=== PATIENT | female | born 1945 | race Caucasian/White ===

== ENCOUNTER 2017-02-21 10:37 | Outpatient (CLI) | payer MEDICARE, OTHER | END 2017-02-21 10:38 | disposition home or self-care (01) | LOC: DI 10:37 | PROVIDERS: ATTEND Family Medicine | DX: R01.1 Cardiac murmur, unspecified (principal); I35.0 Nonrheumatic aortic (valve) stenosis | CPT/HCPCS: 93306 ==

== ENCOUNTER 2017-11-11 12:42 | Outpatient (CLI) | payer MEDICARE, OTHER ==
--- NOTE | 2017-11-19 12:44 | Mammography Report ---
DIGITAL SCREENING MAMMOGRAM: 11/11/2017 CLINICAL INDICATION: A 72-year-old with family history of breast cancer, for screening. COMPARISON: Films from [place], [place] dated 10/28/2016, 10/27/2015, 11/08/2014, 10/25/2013, 11/10/2012, 10/30/2011, 10/31/2010, 09/21/2009. TECHNIQUE: Routine CC and MLO projections were obtained of the breasts. FINDINGS: The breasts demonstrate scattered fibroglandular densities bilaterally. Coarse and punctate, typically benign calcifications are present, no suspicious masses, clustered microcalcifications, or regions of architectural distortion are identified. IMPRESSION: BENIGN FINDINGS. RECOMMENDATION: Routine annual screening unless otherwise clinically indicated. BIRADS CATEGORY 2 - benign findings. STANDARD QUALIFYING STATEMENTS: 1. This examination was reviewed with the aid of Computer-Aided Detection (CAD). 2. A negative or benign imaging report should not delay biopsy if clinically suspicious findings are present. Consider surgical consultation if warranted. More than 5% of cancers are not identified by imaging. 3. Dense breasts may obscure an underlying neoplasm. TD: 11/19/2017 12:43
== END 2017-11-11 12:43 | disposition home or self-care (01) ==
LOC: DI 12:42
PROVIDERS: ATTEND Family Medicine
DX: Z12.31 Encounter for screening mammogram for malignant neoplasm of breast (principal); Z80.3 Family history of malignant neoplasm of breast
CPT/HCPCS: 77067

== ENCOUNTER 2017-12-16 10:24 | Outpatient (CLI) | payer MEDICARE, OTHER ==
[2017-12-16 12:55] LABS: BUN - BLOOD UREA NITROGEN 11 mg/dL (6-20); CALCIUM 9.4 mg/dL (8.5-10.3); CARBON DIOXIDE - CO2 27 mmol/L (21-32); CHLORIDE 100 mmol/L (101-111); CHOL/HDL RATIO 2.5 (<4.4); CHOLESTEROL 188 mg/dL; CREATININE 0.7 mg/dL (0.4-1.0); GFR - MDRD 82 (>89); GLUCOSE 92 mg/dL (70-100); HDL CHOLESTEROL 76 mg/dL; LDL CHOLESTEROL,CALCULATED 102 mg/dL; LDL/HDL RATIO 1.3 (<4.4); SODIUM 134 mmol/L (135-145); VLDL CHOLESTEROL 10 mg/dL
[2017-12-16 13:21] LABS: HB2 TOTAL 14.1 g/dL; HEMOGLOBIN A1C 0.48 g/dL; HEMOGLOBIN A1C % 5.3 % (4.6-6.2)
== END 2017-12-16 10:25 | disposition home or self-care (01) ==
LOC: LAB.WCP 10:24
PROVIDERS: ATTEND Family Medicine
DX: R73.01 Impaired fasting glucose (principal); E78.5 Hyperlipidemia, unspecified
CPT/HCPCS: 36415; 80048; 80061; 83036; 83721

== ENCOUNTER 2018-10-07 19:33 | Observation (INO) | payer MEDICARE, OTHER ==
[2018-10-07 20:01] LABS: BASOPHILS % (AUTO) 0.7 %; EOSINOPHILS # (AUTO) 0.1 10^3/uL (0.0-0.7); HGB - HEMOGLOBIN 12.9 g/dL (12.0-16.0); LYMPHOCYTES % (AUTO) 32.9 %; MEAN CORPUSCULAR HEMOGLOBIN 32.4 pg (27.0-31.0); MEAN CORPUSCULAR HGB CONC 34.7 g/dL (32.0-36.0); MEAN CORPUSCULAR VOLUME 93.4 fL (81.0-99.0); MEAN PLATELET VOLUME 6.4 fL (7.9-10.8); MONOCYTES # (AUTO) 0.6 10^3/uL (0.0-1.0); MONOCYTES % (AUTO) 9.9 %; NEUTROPHILS # (AUTO) 3.2 10^3/uL (1.5-6.6); NEUTROPHILS % (AUTO) 54.5 %; PLT - PLATELET COUNT 238 10^3/uL (130-450); RED BLOOD COUNT 3.97 10^6/uL (4.20-5.40); WHITE BLOOD COUNT 5.9 x10^3/uL (4.8-10.8)
[2018-10-07 20:31] LABS: ALBUMIN 4.1 g/dL (3.2-5.5); ALBUMIN/GLOBULIN RATIO 1.5 (1.0-2.2); BILIRUBIN,TOTAL 0.6 mg/dL (0.2-1.0); CALCIUM 9.7 mg/dL (8.5-10.3); CREATININE 0.7 mg/dL (0.4-1.0); TOTAL PROTEIN 6.8 g/dL (6.7-8.2)
--- NOTE | 2018-10-07 20:55 | ED Physician Documentation ---
History of Present Illness - Stated complaint Stated Complaint: HIGH BP - Chief complaint Chief Complaint: Neuro - History obtained from History obtained from: Patient - History of Present Illness Timing: Other (Feeling off x 10 days. Took BP today and it was 220 systolic. Has had on/off burning chest pain. No CP now. But had a notable CP episode at rest today but felt the pain was mild.) Review of Systems Ten Systems: 10 systems reviewed and negative Constitutional: denies: Fever, Chills Cardiac: reports: Chest pain / pressure. 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 - Present Medications Home Medications: Ambulatory Orders Medication Instructions Recorded Confirmed Aspirin [Adult Low Dose Aspirin EC] 1 tab PO DAILY 10/07/18 10/07/18 Lisinopril/Hydrochlorothiazide 1 tab PO DAILY 10/07/18 10/07/18 [Lisinopril-Hctz 20-25 mg Tab] Simvastatin 20 mg PO DAILY 10/07/18 10/07/18 amLODIPine [Norvasc] 5 mg PO DAILY 10/07/18 10/07/18 - Allergies Allergies/Adverse Reactions: Allergies Allergy/AdvReac Type Severity Reaction Status Date / Time No Known Drug Allergies Allergy Verified 10/07/18 19:43 - Social History Does the pt smoke?: No Smoking Status: Never smoker Does the pt drink ETOH?: Yes Does the pt have substance abuse?: No - Family History Family history: reports: Non contributory - Immunizations Immunizations are current?: Yes - POLST Patient has POLST: No PD ED PE NORMAL - Vitals Vital signs reviewed: Yes - General General: Alert and oriented X 3, No acute distress - HEENT HEENT: PERRL, EOMI - Neck Neck: Supple, no meningeal sign, No bony TTP - Cardiac Cardiac: RRR, No murmur - Respiratory Respiratory: No respiratory distress, Clear bilaterally - Abdomen Abdomen: Normal bowel sounds, Soft, Non tender - Back Back: No CVA TTP, No spinal TTP - Derm Derm: Normal color, Warm and dry - Extremities Extremities: No edema, No calf tenderness / cord - Neuro Neuro: Alert and oriented X 3, Normal speech - Psych Psych: Normal mood, Normal affect Results - Vitals Vitals: Vital Signs - 24 hr 10/07/18 10/07/18 10/07/18 19:35 19:41 21:07 Temperature 36.4 C L Heart Rate 72 55 L 55 L Respiratory 18 17 16 Rate Blood Pressure 224/84 H 218/104 H 211/81 H O2 Saturation 99 96 98 Oxygen O2 Source Room air - EKG (time done) 1957 Rate: Rate (enter#) (57) Rhythm: NSR [place]: Normal Intervals: Normal NH QRS: LVH Ischemia: Normal ST segments Computer interpretation: Agree with computer - Labs Labs: Laboratory Tests 10/07/18 10/07/18 10/07/18 19:56 19:56 19:56 WBC 5.9 RBC 3.97 L Hgb 12.9 Hct 37.1 MCV 93.4 MCH 32.4 H MCHC 34.7 RDW 14.0 Plt Count 238 MPV 6.4 L Neut # (Auto) 3.2 Lymph # (Auto) 2.0 [place] # (Auto) 0.6 Eos # (Auto) 0.1 Baso # (Auto) 0.0 Absolute Nucleated RBC 0.00 Nucleated RBC % 0.0 Sodium 139 Potassium 3.9 Chloride 104 Carbon Dioxide 26 Anion Gap 9.0 BUN 15 Creatinine 0.7 Estimated GFR (MDRD) 82 L Glucose 134 H Calcium 9.7 Total Bilirubin 0.6 AST 37 ALT 46 Alkaline Phosphatase 47 Troponin I 0.04 Total Protein 6.8 Albumin 4.1 Globulin 2.7 Albumin/Globulin Ratio 1.5 Lipase 24 PD MEDICAL DECISION MAKING - ED course Complexity details: reviewed old records (Blood pressure in the clinic last year were generally normal in the range of 118-122 systolic.) ED course: This is a 73-year-old woman who presents with uncontrolled blood pressures. In the past her blood pressures been well controlled. She says that she last had it checked about 2 months ago when she gave blood and it was normal then. Today she had an atypical chest pain episode and noted her blood pressure was quite high. It does not really sound like this is improving ACS or unstable angina, that said we must presume that it is and lower her blood pressure and do a formal rule out. Spoke with Dr. Spencer for observation at 9:15 PM. Departure - Departure Disposition: ED Place in Observation Clinical Impression: Chest pain Qualifiers: Chest pain type: unspecified Qualified Code(s): R07.9 - Chest pain, unspecified Hypertension Qualifiers: Hypertension type: essential hypertension Qualified Code(s): I10 - Essential (primary) hypertension Condition: Stable
[2018-10-07] MEDS ORDERED: NITROGLYCERIN 50 MG/250 ML 50 MG/250 ML BOTTLE IV STA (21:03)
[2018-10-07] MEDS ORDERED: LISINOPRIL 5 MG TABLET PO STA (21:04)
[2018-10-07] MEDS ORDERED: NITROGLYCERIN 2% PASTE TOP STA (21:04)
[2018-10-07] MEDS ORDERED: PROCHLORPERAZINE 10 MG/2 ML VIAL IVP PRN (21:42)
[2018-10-07] MEDS ORDERED: ACETAMINOPHEN 325 MG TABLET PO PRN (21:42)
[2018-10-07] MEDS ORDERED: MORPHINE 2 MG/ML CARPUJECT IVP PRN (21:42)
[2018-10-07] MEDS ORDERED: SODIUM CHLORIDE FLUSH 0.9% 10 ML SYRINGE IVP PRN (21:42)
[2018-10-07] MEDS ORDERED: ZOLPIDEM 5 MG TABLET PO PRN (21:42)
[2018-10-07] MEDS ORDERED: ONDANSETRON 4 MG/2 ML VIAL IVP PRN (21:42)
--- NOTE | 2018-10-07 22:24 | HISTORY & PHYSICAL EXAMINATION ---
Chief Complaint - Chief Complaint Chief Complaint: Elevated blood pressure and not feeling well times 10 days History of Present Illness - Admitted From Admitted From:: Emergency department - History Obtained From Records Reviewed: Emergency department records History obtained from: Patient and ED physician, Dr. Ybarra Exam Limitations: None - History of Present Illness HPI Comment/Other: Patient is a 73-year-old female with a past medical history of hypertension, hyperlipidemia, and prediabetes who presents today having felt generally unwell for the last 10 days. Her symptoms are relatively vague but this prompted her to check her blood pressure earlier today and she found her systolic blood pressure to be about 220. Shortly after this she started to feel some discomfort in the midsternal area of her chest that was nonradiating and was not associated with any version and was self-limiting after a few hours. Because of the blood pressure and her feeling off, having a headache and some other vague symptoms such as fatigue, weakness, malaise, she came to the ER for further evaluation and was found to be in hypertensive emergency with blood pressures in the 200s over 90s-100s. Cardiac evaluation included a EKG and initial set of cardiac enzymes which were both negative for ischemic change. The patient was also given a nitroglycerin paste and a 20 mg dose of lisinopril orally. The patient states she has been fully compliant with her blood pressure medications and her last office visit with her PCP was approximately 11 months ago. She has not had any further changes since then but to the best of her knowledge she has not had any problems with her blood pressure prior to this. Besides the headache she denies any focal neurological symptoms such as changes in her vision, numbness, changes in mental status, weakness, etc. History - Past Medical History Cardiovascular: reports: Hypertension, High cholesterol, Murmur (Patient does have a murmur which prompted me to ask about history and she does recall that she has had an echocardiogram which I was able to find and it does demonstrate calcifications on the aortic valve with aortic regurg.) Respiratory: reports: None Neuro: reports: None. denies: CVA, TIA, Headaches GI: reports: GERD ART THERAPY CERTIFIED SUPERVISOR: denies: Breast cancer : reports: Retention Psych: reports: Anxiety MRSA Hx?: No - Past Surgical History /ART THERAPY CERTIFIED SUPERVISOR: reports: Tubal ligation, Other (Bladder suspension surgery sling) HEENT: reports: Tonsil/Adenoidectomy - Family & Social History Family History: Mother: Hypertension, Father: CAD, CVA/TIA, Hypertension, Sister: Cancer (Breast), Hypertension, Brother: Hypertension Social History Notes: Lives with spouse in [place]. Has 2 adult children in [place]. Retired hotel dining room cashier, in 2007. 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 - Substance History Use: Uses substance without health or social issues: NONE Tobacco Details: Cigarettes ( Smoked from [age], > 1 pack, so atleast 20 pack year hx) - POLST Patient has POLST: No POLST Status: DNR Meds/Allgy - Home Medications Home Medications: Ambulatory Orders Medication Instructions Recorded Confirmed Aspirin [Adult Low Dose Aspirin EC] 1 tab PO DAILY 10/07/18 10/07/18 Lisinopril/Hydrochlorothiazide 1 tab PO DAILY 10/07/18 10/07/18 [Lisinopril-Hctz 20-25 mg Tab] Simvastatin 20 mg PO DAILY 10/07/18 10/07/18 amLODIPine [Norvasc] 5 mg PO DAILY 10/07/18 10/07/18 - Allergies Allergies/Adverse Reactions: Allergies Allergy/AdvReac Type Severity Reaction Status Date / Time No Known Drug Allergies Allergy Verified 10/07/18 19:43 Review of Systems - Constitutional Constitutional: reports: Fatigue, Malaise, Weakness, Poor appetite - Neurological Neurological: reports: General weakness, Headache. denies: Focal weakness, Dizziness, Numbness, Memory problems, Pre-existing deficit, Abnormal gait, Seizures, Incoordination, Slurred speech - Psychiatric Psychiatric: reports: Anxiety (She admits to some initial anxiety over the blood pressure and she correlates the onset of her chest pain to her anxiety over reading how high her blood pressure was) Prior Level of Functionality: Fully independent Exam - Vital Signs Reviewed Vital Signs: Yes Vital Signs: Vital Signs x48h Temp Pulse Pulse Resp BP BP Pulse Ox 10/07/18 22:18 36.5 C 62 16 240/83 H 10/07/18 22:01 57 L 17 197/74 H 99 10/07/18 21:33 54 L 16 197/84 H 99 10/07/18 21:25 54 L 15 217/93 H 99 10/07/18 21:07 55 L 16 211/81 H 98 10/07/18 19:41 55 L 17 218/104 H 96 10/07/18 19:35 36.4 C L 72 18 224/84 H 99 Vital Signs - 24 hr 10/07/18 10/07/18 10/07/18 19:35 19:41 21:07 Temperature 36.4 C L Heart Rate 72 55 L 55 L Heart Rate [ Brachial] Respiratory 18 17 16 Rate Blood Pressure 224/84 H 218/104 H 211/81 H Blood Pressure [Right Brachial artery] O2 Saturation 99 96 98 10/07/18 10/07/18 10/07/18 21:25 21:33 22:01 Temperature Heart Rate 54 L 54 L 57 L Heart Rate [ Brachial] Respiratory 15 16 17 Rate Blood Pressure 217/93 H 197/84 H 197/74 H Blood Pressure [Right Brachial artery] O2 Saturation 99 99 99 10/07/18 10/07/18 10/07/18 22:18 22:55 23:01 Temperature 36.5 C Heart Rate Heart Rate [ 62 64 Brachial] Respiratory 16 Rate Blood Pressure 240/82 H Blood Pressure 240/83 H 232/72 H [Right Brachial artery] O2 Saturation 97 10/07/18 10/07/18 23:06 23:11 Temperature Heart Rate Heart Rate [ 69 71 Brachial] Respiratory Rate Blood Pressure Blood Pressure 185/64 H 182/69 H [Right Brachial artery] O2 Saturation Oxygen O2 Source Room air - Physical Exam General Appearance: positive: No acute distress, Alert Eyes Bilateral: positive: Normal inspection, EOMI ENT: positive: ENT inspection nml Neck: positive: Nml inspection, Thyroid nml, No JVD Respiratory: positive: No respiratory distress, Other (There is some moderate discomfort to palpation of the sternum and she does report this is consistent with the chest pain she felt prior to coming in). negative: Chest non-tender Cardiovascular: positive: Regular rate & rhythm, No gallop, Systolic murmur. negative: No murmur, Irregularly irregular, Extrasystoles Peripheral Pulses: positive: 2+ Abdomen: positive: Non-tender Extremities: positive: Non-tender, Full ROM, No pedal edema Neurologic/Psychiatric: positive: Oriented x3, CN's nml (2-12), Motor nml, Sensation nml, Mood/affect nml. negative: Weakness, Sensory loss, Facial droop, Slurred/abnml speech, Depressed mood/affect Conclusion/Plan - Problem List (1) Hypertensive emergency Conclusion/Plan: Blood pressure is not well controlled on her home medication regimen though it apparently has been for some time. There while of the sudden this changed as the patient does not recall any specific etiology such as stressors or changes in degree of aortic calcification and for this I will order a repeat echocardiogram as there could be a change in dynamics enough to affect blood pressure or chest pain. Otherwise, will continue patient's home medication with the addition of an additional 20 mg of lisinopril plus hydralazine as needed and further changes to her medications to be made in the morning based on her blood pressures after the nitroglycerin paste and as needed medications. (2) Hyperlipidemia Conclusion/Plan: We will continue home statin, already gave 80 mg x1 due to chest pain, will check lipid panel in the morning. (3) Prediabetes Conclusion/Plan: Patient is certainly a candidate for metabolic syndrome, and has a outstanding diagnosis of prediabetes and has not been seen by PCP in nearly 1 year. We will check a A1c with morning labs. (4) Chest pain Conclusion/Plan: Given normal cardiac enzyme and EKG and patient's history with pain reproducible by palpation I am not very suspicious of acute coronary syndrome however she does have several risk factors including age, hypertension, obesity, smoking history, prediabetes and is a candidate for a stress test which I have ordered to be done if her blood pressure can be controlled. Also echocardiogram is ordered. Qualifiers: Chest pain type: unspecified Qualified Code(s): R07.9 - Chest pain, unspecified - Lab Results Lab results reviewed: Yes Fish Bones: 10/07/18 19:56 10/07/18 19:56 - EKG Results EKG Interpreted Independently: Yes EKG Comparison: Old EKG unavailable Core Measures - Anticipated LOS I expect patient to be DC'd or transferred within 96 hours.: Yes - DVT/VTE - Prophylaxis VTE/DVT Device ordered at admit?: Yes
[2018-10-07] MEDS ORDERED: hydrALAZINE INJ 20 MG/ML VIAL IVP PRN (22:34)
--- NOTE | 2018-10-07 23:26 | ADVANCE CARE PLANNING NOTE ---
Advance Care Planning - Date/Time Date: 10/07/18 Time: 23:24 - Purpose of encounter Text: To discuss options for expressing patient wishes and goals for end-of-life care - Parties in attendance Parties in attendance: Patient and and myself - Decisional capacity Decisional capacity of: Full decisional capacity with no mental status changes and baseline mental stat us normal - Subjective/Patient's story Subjective/Patient's story: Patient came in because she was not feeling well for 10 days and discovered her blood pressure to be over 200 systolic. She started to have some chest pain shortly after this. - Objective/Medical story Objective/Medical Story: Initial evaluation in the emergency room was reassuring and that troponin was negative x1 and EKG showed no ischemic changes but given her hypertensive emergency with chest pain was considered for possible [place] ischemia versus other etiologies of chest pain.Was put on a nitro glycerin paste, and given lisinopril orally. - Goals of Care Goals of care determinations: Rule out acute coronary syndrome and control blood pressure - Plan Plan: Placed in observation overnight with serial troponins, echocardiogram and stress test in the morning, close monitoring of blood pressure with as needed hydralazine ordered in addition to previous medications. - Code Status Code Status: Do Not Attempt Resuscitation - Time Spent on Advance Care Planning Time spent on advance care plannin minutes
[2018-10-08] MEDS: SODIUM CHLORIDE FLUSH 0.9% 10 ML SYRINGE IVP SCH ×2 (00:23→08:59)
[2018-10-08 03:29] LABS: BASOPHILS % (AUTO) 0.6 %; EOSINOPHILS # (AUTO) 0.1 10^3/uL (0.0-0.7); EOSINOPHILS % (AUTO) 2.1 %; HGB - HEMOGLOBIN 12.2 g/dL (12.0-16.0); LYMPHOCYTES # (AUTO) 1.7 10^3/uL (1.5-3.5); LYMPHOCYTES % (AUTO) 24.9 %; MEAN CORPUSCULAR HEMOGLOBIN 32.5 pg (27.0-31.0); MEAN CORPUSCULAR HGB CONC 35.3 g/dL (32.0-36.0); MEAN CORPUSCULAR VOLUME 92.2 fL (81.0-99.0); MONOCYTES # (AUTO) 0.6 10^3/uL (0.0-1.0); MONOCYTES % (AUTO) 8.9 %; NEUTROPHILS # (AUTO) 4.3 10^3/uL (1.5-6.6); NEUTROPHILS % (AUTO) 63.5 %; PLT - PLATELET COUNT 234 10^3/uL (130-450); RED BLOOD COUNT 3.75 10^6/uL (4.20-5.40); RED CELL DISTRIBUTION WIDTH 14.1 % (12.0-15.0); WHITE BLOOD COUNT 6.8 x10^3/uL (4.8-10.8)
[2018-10-08 03:31] LABS: ALBUMIN 3.6 g/dL (3.2-5.5); ALBUMIN/GLOBULIN RATIO 1.5 (1.0-2.2); ALKALINE PHOSPHATASE 44 IU/L (42-121); ALT ALANINE AMINOTRANSFERASE 39 IU/L (10-60); AST ASPARTATE AMINOTRANSFERASE 31 IU/L (10-42); BILIRUBIN,TOTAL 0.6 mg/dL (0.2-1.0); BUN - BLOOD UREA NITROGEN 14 mg/dL (6-20); CALCIUM 9.2 mg/dL (8.5-10.3); CARBON DIOXIDE - CO2 26 mmol/L (21-32); CHLORIDE 106 mmol/L (101-111); CHOL/HDL RATIO 2.6 (<4.4); CHOLESTEROL 159 mg/dL; CREATININE 0.7 mg/dL (0.4-1.0); GFR - MDRD 82 (>89); GLUCOSE 138 mg/dL (70-100); HDL CHOLESTEROL 62 mg/dL; LDL CHOLESTEROL,CALCULATED 85 mg/dL; LDL/HDL RATIO 1.4 (<4.4); SODIUM 140 mmol/L (135-145); VLDL CHOLESTEROL 12 mg/dL
[2018-10-08] MEDS ORDERED: PANTOPRAZOLE 40 MG TABLET PO SCH (07:00)
[2018-10-08] MEDS ORDERED: ASPIRIN EC 81 MG TABLET PO SCH (09:00)
[2018-10-08] MEDS ORDERED: POLYETHYLENE GLYCOL 3350 17 GM PACKET PO SCH (09:00)
[2018-10-08] MEDS ORDERED: hydroCHLOROthiazide 25 MG TABLET PO SCH (09:00)
[2018-10-08] MEDS ORDERED: amLODIPine 5 MG TABLET PO SCH ×2 (09:00)
[2018-10-08] MEDS ORDERED: NON FORMULARY MED (Lisinopril/Hydrochlorothiazide [Lisinopril-Hctz 20-25 Mg Tab] 1 TAB) PO SCH (09:00)
[2018-10-08] MEDS ORDERED: ENOXAPARIN 40 MG/0.4 ML SYRINGE SUBQ SCH (09:00)
[2018-10-08] MEDS ORDERED: LISINOPRIL 20 MG TABLET PO SCH (09:00)
[2018-10-08] MEDS ORDERED: NON FORMULARY MED (Simvastatin [Simvastatin] 20 MG) PO SCH (09:00)
--- NOTE | 2018-10-08 10:14 | Discharge Plan ---
Discharge Plan Disposition: 01 Home, Self Care Condition: Stable Prescriptions: Amlodipine Besylate [Norvasc] 10 mg PO DAILY #30 tablet Diet: Regular Activity Restrictions: Activity as Tolerated Shower Restrictions: No Driving Restrictions: No Additional Instructions or Follow Up instructions: You were placed under observation in the hospital because you came to the e mergency room with an elevated blood pressure that alarmed you. You were also having some vague chest pain. We were able to bring your blood pressure under control with a medicine called hydralazine. Your blood pressure is now much better. But I have increased your Norvasc from 5 mg to 10 mg a day and I sent a new prescription in to [facility] for the 10 mg. Please pickle processor the new prescription after you have finished taking your Norvasc 5 mg, 2 tablets a day. Your lisinopril with hydrochlorothiazide will stay the same strength. As for the chest pain, blood test for heart attack were negative. But your heart muscle was under little bit of strain because of the high blood pressure in the highest your muscle enzyme level went to was 0.07. It is not considered positive unless you go greater than 0.49. You also had a treadmill test with a scan of your heart. The results of that are pending at the time of this discharge. Review that report with Dr. Cifuentes. In addition to the blood test, treadmill test, you also had an echocardiogram done of your heart. Which is an ultrasound of your heart. Preliminary report shows your ability to squeeze in a normal way is quite good. We call that ejection fraction and that is 60-65%. Your high blood pressure is impairing your ability for your heart to completely relax and you have something called grade 1 diastolic heart failure. You do have a little bit of narrowing of the aortic valve with mild to moderate aortic stenosis. It has not changed from the February 2017 echocardiogram. Again, this is a preliminary report, make sure that your primary care provider reviews this with you. Please make an appointment to see Dr. Cifuentes in the next week. You need your blood pressure checked on the new strength of Norvasc, and Dr. Cifuentes needs to review the treadmill test. No Smoking: If you smoke, Please STOP! Call for help. Follow-up with: Shaji Cifuentes, [Primary Care Provider] -
--- NOTE | 2018-10-08 13:56 | Nuclear Medicine Report ---
Reason: chest pain Procedure Date: 10/08/2018 Accession Number: [id number] / [id number] Procedure: NM - Myocardial Perfusion STR/RST CPT Code: FULL RESULT: EXAM: SINGLE-ISOTOPE EXERCISE STRESS TEST. SINGLE-ISOTOPE AND ONE-DAY REST/STRESS MYOCARDIAL PERFUSION SCANS WITH TOMOGRAPHIC IMAGING, QUANTITATIVE ANALYSIS, WALL MOTION ANALYSIS AND CALCULATION OF EJECTION FRACTION. EXAM DATE: 10/08/2018 01:34 PM. CLINICAL HISTORY: Chest pain. COMPARISON: None. TECHNIQUE: A rest myocardial perfusion scan was done with tomography after the intravenous administration of 10.9 mCi Tc-99m sestamibi. After an appropriate delay, a treadmill exercise stress was performed according to department protocol. The patient exercised for 6 minutes and 39 seconds. The maximum heart rate was 150 bpm, which was 103% of the maximum predicted heart rate of 145 bpm. At approximately peak heart rate, 43.1 mCi of Tc-99m sestamibi was injected for stress myocardial perfusion scan. Motion correction was applied when appropriate. Gated tomographic images were obtained for wall motion analysis and computation of left ventricular ejection fraction. FINDINGS: On visual analysis, no convincing significant fixed or reversible perfusion defects. Computer analysis: Summed stress score 3 Summed rest score 2 Summed difference score 1 Wall motion analysis demonstrates no focal wall motion abnormality The left ventricular end-diastolic volume is 69 cc. The left ventricular end-systolic volume is 16 cc. The left ventricular ejection fraction is calculated to be 77%. IMPRESSION: 1. No scintigraphic findings to indicate myocardial ischemia. Negative for infarct. 2. Normal left ventricular ejection fraction of 77%. 3. Normal segmental and global wall motion. 4. Normal left ventricular cavity size, no change with stress. 5. On computer analysis, normal study with no ischemia. [facility]
[2018-10-08 13:57] VITALS: BP 126/53
--- NOTE | 2018-10-08 19:17 | DISCHARGE SUMMARY ---
Physician: Cielo Thomas MD DATE OF ADMISSION: 10/07/2018 DATE OF DISCHARGE: 10/08/2018 DISCHARGE DIAGNOSES 1. Chest pain. 2. Hypertensive urgency. 3. Aortic regurgitation, mild aortic stenosis. 4. Glucose intolerance. 5. Hyperlipidemia. DISCHARGE MEDICATIONS 1. Aspirin 81 mg a day. 2. Lisinopril 24/25 mg tablet once a day. 3. Simvastatin 20 mg a day. 4. NEW PRESCRIPTION: Amlodipine increased from 5 mg daily to 10 mg daily. PRINCIPAL PROCEDURES 1. Ilir protocol treadmill study with nuclear imaging myocardial perfusion scan. Patient reached target heart rate at 150 beats per minute, which was 103% of the maximum predicted heart rate of 145. There were no ST changes on EKG that were diagnostic of ischemia. Gated tomographic images were obtained, and on visual analysis, no convincing significant fixed or reversible perfusion defects. 2. Echocardiogram compared to 02/2017 echo, preliminary report; final report must be verified by PCP to discuss with patient. Overall left ventricular systolic function normal with an ejection fraction of 60-65%. Grade 1 diastolic dysfunction. Mild concentric left ventricular hypertrophy. Aortic valve trileaflet. Mild aortic stenosis with peak mean pressure gradient of 21 mmHg/16 mmHg. Valve area 1.33 cm2. Trace aortic regurgitation. No change from 02/21/2017. 3. Fasting lipid panel with cholesterol 159, LDL 85, VLDL 12, HDL 62. 4. Fasting glucose 138. 5. Serial cardiac enzymes negative. HOSPITAL COURSE: She is a luz elena 73-year-old female who has not been feeling well for a couple of weeks. She is exhausted, but nothing very specific. There is no fever, no chills, no orthopnea, no edema. No palpitations, but not feeling well for 10 days caused her to check her blood pressure today, and she found her systolic blood pressure above 200. Shortly after that, she started feeling as if she was having midsternal area in her chest that was aching. Nonradiating. Not worse with exertion, but not better with rest. It also came with headache, fatigue, weakness, malaise, and she came to the emergency room where a hypertensive emergency with a blood pressure over 200s/90-100s was found. EKG and cardiac enzymes were negative for ischemic changes. She was given nitroglycerin paste, 20 mg dose of lisinopril. She stated that she has been fully compliant with her blood pressure drugs, and her last PCP office visit was 11 months ago. She has known mild aortic regurgitation and mild aortic stenosis. Hospital course was that of an elderly slightly anxious female who needed to be treated for hypertensive urgency. Not only did she receive those medications in the emergency room, but she received Amlodipine 10 mg and hydralazine IV. Only 1 dose of hydralazine was required. This brought her blood pressure down from 232/72 to 126/53 by the time of discharge. To workup her chest pain, she underwent a stress test, Ilir protocol, with nuclear medicine imaging and was negative for ischemia. There were no fixed or reversible diffusion defects. Echo confirmed mild aortic regurgitation that was unchanged from 02/2017. Aortic root diameter represents the main risk factor for aortic valve regurgitation. Even though arterial hypertension is commonly regarded as a predisposing factor for the development of thoracic aortic root aneurysms, the role of blood pressure as a determinate for aortic root enlargement is still controversial. There is a strong association with a widened pulse pressure, which this patient has, hypertension, and aortic root enlargement However, her aortic root is normal size on echo. The next differential as the possible cause of her blood pressure should be evaluated. I am recommending that she get renal artery Dopplers in the outpatient setting. I would recommend she be seen in a radiology facility that specializes in arterial Dopplers of the renal arteries. Glucose intolerance was noted on labs with a fasting of 138. A1c was not done. Fasting lipid panel was noted as above. The patient had no further chest pain during her stay. PHYSICAL EXAMINATION VITAL SIGNS: On discharge, temperature was 36.6, pulse 67, blood pressure 126/53, respirations 16, and 96% on room air. GENERAL: She is a delightful, alert, elderly female who looks her stated age. NECK: Supple without carotid bruits. LUNGS: Clear to auscultation and she has no crackles, rhonchi or wheezing. HEART: PMI is normally placed with a regular rate and rhythm and a systolic ejection murmur that does radiate into her carotids. ABDOMEN: Soft, nontender. No organomegaly. EXTREMITIES: The ankles are without edema, warm. She ambulates without any ataxia or increased respiratory effort. She is asked to follow up with seeing her primary care provider, Rossana Cifuentes, in the next 1-2 weeks. We have increased her Norvasc from 5 to 10 mg. We would like to have her blood pressure reviewed, and she should get those renal artery Dopplers done to see if there is a reason why this woman is giving uncontrolled blood pressure in a compliant patient. She should also have her glucose monitored with an A1c done in 4-6 months to make sure she is not developing sofiya diabetes. TD: 10/08/2018 15:37 MTDMacrina
[2018-10-08 20:14] LABS: HEMOGLOBIN A1C 0.47 g/dL; HEMOGLOBIN A1C % 5.5 % (4.6-6.2)
[2018-10-08] MEDS ORDERED: ATORVASTATIN 40 MG TABLET PO SCH (21:00)
--- NOTE | 2018-10-12 16:40 | PROCEDURE REPORT ---
Hospitalist Procedure Note - Procedure Note Procedure Note: October 08, 2018 Procedure: Nuclear medicine myocardial perfusion stress/rest Indication: Midsternal chest pain in a patient with hypertensive urgency Clinical history: 73-year-old female with no known history of coronary artery disease who has risk factors of hypertension, hyperlipidemia, glucose intolerance, and a positive family history that presents with vague substernal chest pain in association with a blood pressure of over 224/104. EKG has been noncontributory and troponins are negative. She is an ex-smoker that smoked 1 pack/day for 20 years and quit at age 38. Procedure: The patient performed a Ilir protocol treadmill exercise and comp leted 6 minutes and 39 seconds with an estimated workload of 7.05 metabolic equivalents. The test was terminated due to fatigue and shortness of breath. There was no chest pain. The heartbeat was 66 beats per minute at rest. She reached 150 heartbeats per minute which was 103% max predicted heart rate. Starting blood pressure was 128/82 and maximum blood pressure was 172/80. This was a normal hypertensive response. Other than fatigue and shortness of breath she did not have any chest pain. The resting EKG demonstrated normal sinus rhythm, no ectopy. She had T wave inversions at III, with flattening of T waves diffusely in all leads. She had an RSR prime in V1. During stress there was isolated PVCs. Maximum ST elevation was 0.16 in V2. There was no diagnostic criteria for ischemia met. Recovery was quick. She was down to 100 heartbeats per minute at 2 minutes and 14 seconds. Was below 100 x 2 minutes and 40 seconds. By 3 minutes 38 seconds heart rate was 87 and blood pressure was 178/68. Impression: No diagnostic criteria for ischemia met in this Ilir protocol treadmill test where the patient had good effort. Nuclear medicine imaging report to follow under separate dictation per radiology
== END 2018-10-08 15:00 | disposition home or self-care (01) ==
LOC: ED 19:33 → MS2 21:45
PROVIDERS: ADMIT Family Medicine Sports Medicine; ATTEND Specialist
DX: R07.89 Other chest pain (principal); I16.0 Hypertensive urgency; I35.0 Nonrheumatic aortic (valve) stenosis; E74.39 Other disorders of intestinal carbohydrate absorption; E78.5 Hyperlipidemia, unspecified; I10 Essential (primary) hypertension; R73.03 Prediabetes; E66.9 Obesity, unspecified; Z68.31 Body mass index [BMI] 31.0-31.9, adult; Z87.891 Personal history of nicotine dependence; Z82.49 Family history of ischemic heart disease and other diseases of the circulatory system; F41.9 Anxiety disorder, unspecified
CPT/HCPCS: 36415; 78452; 80053; 80061; 83036; 83690; 83880; 84484; 85025; 93005; 93017; 93306; 96374; 99283; 99284; A9270; A9500; G0378; 80048; 83721

== ENCOUNTER 2018-12-31 08:00 | Outpatient (CLI) | payer MEDICARE, OTHER ==
[2018-12-31 18:46] LABS: BASOPHILS # (AUTO) 0.1 10^3/uL (0.0-0.1); BASOPHILS % (AUTO) 1.4 %; EOSINOPHILS # (AUTO) 0.2 10^3/uL (0.0-0.7); EOSINOPHILS % (AUTO) 3.5 %; HGB - HEMOGLOBIN 13.1 g/dL (12.0-16.0); LYMPHOCYTES # (AUTO) 1.9 10^3/uL (1.5-3.5); LYMPHOCYTES % (AUTO) 32.7 %; MEAN CORPUSCULAR HEMOGLOBIN 31.3 pg (27.0-31.0); MEAN CORPUSCULAR HGB CONC 33.1 g/dL (32.0-36.0); MEAN CORPUSCULAR VOLUME 94.5 fL (81.0-99.0); MEAN PLATELET VOLUME 7.3 fL (7.9-10.8); MONOCYTES # (AUTO) 0.6 10^3/uL (0.0-1.0); MONOCYTES % (AUTO) 11.1 %; NEUTROPHILS % (AUTO) 51.3 %; PLT - PLATELET COUNT 273 10^3/uL (130-450); RED BLOOD COUNT 4.19 10^6/uL (4.20-5.40); RED CELL DISTRIBUTION WIDTH 14.4 % (12.0-15.0); WHITE BLOOD COUNT 5.8 x10^3/uL (4.8-10.8)
[2018-12-31 19:03] LABS: ALBUMIN 4.3 g/dL (3.2-5.5); ALBUMIN/GLOBULIN RATIO 1.5 (1.0-2.2); ALKALINE PHOSPHATASE 57 IU/L (42-121); ALT ALANINE AMINOTRANSFERASE 40 IU/L (10-60); AST ASPARTATE AMINOTRANSFERASE 31 IU/L (10-42); BILIRUBIN,TOTAL 0.6 mg/dL (0.2-1.0); BUN - BLOOD UREA NITROGEN 21 mg/dL (6-20); CALCIUM 10.3 mg/dL (8.5-10.3); CARBON DIOXIDE - CO2 24 mmol/L (21-32); CHLORIDE 104 mmol/L (101-111); CHOL/HDL RATIO 2.9 (<4.4); CHOLESTEROL 172 mg/dL; CREATININE 0.7 mg/dL (0.4-1.0); GFR - MDRD 82 (>89); GLUCOSE 117 mg/dL (70-100); HB2 TOTAL 14.2 g/dL; HDL CHOLESTEROL 59 mg/dL; HEMOGLOBIN A1C 0.58 g/dL; HEMOGLOBIN A1C % 5.9 % (4.6-6.2); LDL CHOLESTEROL,CALCULATED 100 mg/dL; LDL/HDL RATIO 1.7 (<4.4); SODIUM 138 mmol/L (135-145); TOTAL PROTEIN 7.1 g/dL (6.7-8.2); VLDL CHOLESTEROL 13 mg/dL
== END 2018-12-31 23:59 | disposition home or self-care (01) ==
LOC: LAB.WCP 08:00
PROVIDERS: ATTEND Family Medicine
DX: R73.01 Impaired fasting glucose (principal); E78.5 Hyperlipidemia, unspecified; I10 Essential (primary) hypertension
CPT/HCPCS: 36415; 80053; 80061; 83036; 83721; 85025

== ENCOUNTER 2019-01-07 15:30 | Outpatient (CLI) | payer MEDICARE, OTHER ==
[2019-01-07 19:26] LABS: BILIRUBIN,URINE NEGATIVE (NEGATIVE); GLUCOSE, URINE (UA) NEGATIVE (NEGATIVE); KETONES,URINE (UA) NEGATIVE (NEGATIVE); LEUKOCYTE ESTERASE, URINE SMALL (NEGATIVE); NITRITE,URINE POSITIVE (NEGATIVE); OCCULT BLOOD,URINE TRACE-LYSE (NEGATIVE); PROTEIN,URINE NEGATIVE (NEGATIVE); UROBILINOGEN,URINE 0.2 (NORMAL) E.U./dL (NORMAL)
[2019-01-07 19:27] LABS: CLARITY,URINE CLEAR (CLEAR)
[2019-01-07 19:42] LABS: BACTERIA,URINE Rare /HPF (None Seen); RBC,URINE 0-5 /HPF (0-5); SQUAMOUS EPITHELIAL CELL,UR NONE SEEN (<= Few)
== END 2019-01-07 23:59 | disposition home or self-care (01) ==
LOC: LAB.R 15:30
PROVIDERS: ATTEND Family Medicine
DX: R30.0 Dysuria (principal)
CPT/HCPCS: 81001; 81003; 87086

== ENCOUNTER 2019-01-11 10:08 | Outpatient (CLI) | payer MEDICARE, OTHER ==
--- NOTE | 2019-01-11 14:25 | Mammography Report ---
Reason: SCREENING MAMMO Procedure Date: 01/11/2019 Accession Number: [id number] / [id number] Procedure: [facility] - Screening Mammo w/Valdemar CPT Code: FULL RESULT: EXAM: Screening Mammo w/Valdemar DATE: 01/11/2019 12:14 PM CLINICAL HISTORY: Family history of breast cancer, for routine screening TECHNIQUE: (B) - Bilateral CC and MLO views were obtained. COMPARISON: 11/11/2017, 10/28/2016, 10/27/2015, 11/08/2014. PARENCHYMAL PATTERN: (A) - The breasts demonstrate scattered fibroglandular densities bilaterally. FINDINGS: There has been no significant interval change. There are no suspicious masses, calcifications, or areas of distortion. Small nodular densities predominantly in the left breast are stable. Benign-appearing coarse calcifications are present in the right breast with bilateral vascular calcifications. IMPRESSION: Benign findings. BI-RADS category 2. RECOMMENDATION: (ANNUAL) - Recommend routine annual screening mammography. BI-RADS CATEGORY: (2) - Benign Findings. STANDARD QUALIFYING STATEMENTS: 1. This examination was not reviewed with the aid of Computer-Aided Detection (CAD). 2. A negative or benign imaging report should not preclude biopsy if clinically suspicious findings are present. 3. Dense breasts may obscure an underlying neoplasm. 4. This examination was reviewed with the aid of 3D breast imaging (tomosynthesis).
== END 2019-01-11 10:09 | disposition home or self-care (01) ==
LOC: DI 10:08
DX: Z12.31 Encounter for screening mammogram for malignant neoplasm of breast (principal); Z80.3 Family history of malignant neoplasm of breast
CPT/HCPCS: 77063; 77067

== ENCOUNTER 2019-02-09 11:30 | Outpatient (CLI) | payer MEDICARE, OTHER | END 2019-02-09 11:31 | disposition home or self-care (01) | LOC: LAB.R 11:30 | PROVIDERS: ATTEND Family Medicine | DX: R30.0 Dysuria (principal) | CPT/HCPCS: 87086 ==

== ENCOUNTER 2019-02-26 08:00 | Outpatient (CLI) | payer MEDICARE, OTHER ==
[2019-02-26 18:29] LABS: BILIRUBIN,URINE NEGATIVE (NEGATIVE); GLUCOSE, URINE (UA) NEGATIVE (NEGATIVE); KETONES,URINE (UA) NEGATIVE (NEGATIVE); LEUKOCYTE ESTERASE, URINE SMALL (NEGATIVE); NITRITE,URINE NEGATIVE (NEGATIVE); OCCULT BLOOD,URINE SMALL (NEGATIVE); PROTEIN,URINE NEGATIVE (NEGATIVE); UROBILINOGEN,URINE 0.2 (NORMAL) E.U./dL (NORMAL)
[2019-02-26 18:52] LABS: CLARITY,URINE CLEAR (CLEAR)
[2019-02-26 18:53] LABS: BACTERIA,URINE None Seen /HPF (None Seen); RBC,URINE 0-5 /HPF (0-5); SQUAMOUS EPITHELIAL CELL,UR NONE SEEN (<= Few)
== END 2019-02-26 23:59 | disposition home or self-care (01) ==
LOC: LAB.R 08:00
PROVIDERS: ATTEND Physician Assistant
DX: R30.0 Dysuria (principal)
CPT/HCPCS: 81001; 81002; 81003; 87086

== ENCOUNTER 2019-04-22 13:16 | Outpatient (CLI) | payer MEDICARE, OTHER ==
[2019-04-22 18:59] LABS: CREATININE 0.7 mg/dL (0.4-1.0)
== END 2019-04-22 23:59 | disposition home or self-care (01) ==
LOC: LAB.WCP 13:16
PROVIDERS: ATTEND Urology
DX: Z87.448 Personal history of other diseases of urinary system (principal)
CPT/HCPCS: 36415; 82565; 84520

== ENCOUNTER 2019-06-07 06:40 | Day surgery (SDC) | payer MEDICARE, OTHER ==
[2019-06-07] MEDS ORDERED: MIDAZOLAM 2 MG/2 ML VIAL IVP ONE (06:41)
[2019-06-07] MEDS ORDERED: fentaNYL 250 MCG/5 ML VIAL IVP ONE (06:41)
[2019-06-07] MEDS ORDERED: LACTATED RINGERS 1,000 ML IV ONE (06:47)
[2019-06-07 09:33] VITALS: BP 127/72
== END 2019-06-07 06:41 | disposition home or self-care (01) ==
LOC: SDS 06:40
PROVIDERS: ATTEND Internal Medicine Gastroenterology
PROC: 0DJD8ZZ Inspection of Lower Intestinal Tract, Via Natural or Artificial Opening Endoscopic (ICD-10-PCS; principal; 2019-06-07 08:15)
DX: Z12.11 Encounter for screening for malignant neoplasm of colon (principal); K57.30 Diverticulosis of large intestine without perforation or abscess without bleeding; E66.9 Obesity, unspecified; I10 Essential (primary) hypertension; Z79.899 Other long term (current) drug therapy; Z80.3 Family history of malignant neoplasm of breast; Z87.891 Personal history of nicotine dependence; Z68.31 Body mass index [BMI] 31.0-31.9, adult
CPT/HCPCS: G0105; J3010; J7120

== ENCOUNTER 2020-04-06 12:42 | Outpatient (CLI) | payer MEDICARE, OTHER ==
--- NOTE | 2020-04-10 07:58 | Mammography Report ---
Reason: ROUTINE MAMMO Procedure Date: 04/06/2020 Accession Number: [id number] / [id number] Procedure: MGN - Screening Mammo w/Valdemar CPT Code: Final Report FULL RESULT: BILATERAL DIGITAL SCREENING MAMMOGRAM 3D/2D: 04/06/2020 CLINICAL: Routine screening. Comparison is made to exams dated: 01/11/2019 mammogram, 11/11/2017 mammogram - [facility], 10/28/2016 mammogram, 10/27/2015 mammogram, and 11/08/2014 mammogram - [facility]. There are scattered fibroglandular elements in both breasts. There are benign vascular calcifications in both breasts. No significant masses, calcifications, or other findings are seen in either breast. There has been no significant interval change. IMPRESSION: There is no mammographic evidence of malignancy. A 1 year screening mammogram is recommended. This exam was interpreted at Station ID: [id number]. NOTE: For mammograms, a report in lay terms will be sent to the patient. Approximately 15% of breast malignancies will not be visualized mammographically. In the management of a palpable breast mass, a negative mammogram must not discourage biopsy of a clinically suspicious lesion. Electronically Signed By: Agnieszka scales/tahir:04/07/2020 16:14:14 ACR BI-RADS Category 2: Benign Finding(s) 3342F B -Scattered fibroglandular 2 Mammogram [id number] 1 year screening B
== END 2020-04-06 12:43 | disposition home or self-care (01) ==
LOC: DI.N 12:42
DX: Z12.31 Encounter for screening mammogram for malignant neoplasm of breast (principal)
CPT/HCPCS: 77063; 77067

== ENCOUNTER 2020-06-23 15:47 | Outpatient (CLI) | payer MEDICARE, OTHER ==
[2020-06-23] MEDS ORDERED: IOVERSOL 320 50 ML VIAL ONE (16:04)
[2020-06-23] MEDS ORDERED: IOVERSOL 320 100 ML VIAL IVP ONE ×2 (16:04→17:16)
[2020-06-23 16:21] LABS: BASOPHILS # (AUTO) 0.1 10^3/uL (0.0-0.1); BASOPHILS % (AUTO) 0.7 %; EOSINOPHILS # (AUTO) 0.1 10^3/uL (0.0-0.7); EOSINOPHILS % (AUTO) 0.9 %; HGB - HEMOGLOBIN 12.2 g/dL (12.0-16.0); LYMPHOCYTES # (AUTO) 3.3 10^3/uL (1.5-3.5); LYMPHOCYTES % (AUTO) 33.8 %; MEAN CORPUSCULAR HEMOGLOBIN 32.5 pg (27.0-31.0); MEAN CORPUSCULAR HGB CONC 34.5 g/dL (32.0-36.0); MEAN CORPUSCULAR VOLUME 94.4 fL (81.0-99.0); MEAN PLATELET VOLUME 8.9 fL (7.9-10.8); MONOCYTES # (AUTO) 0.7 10^3/uL (0.0-1.0); MONOCYTES % (AUTO) 7.4 %; NEUTROPHILS # (AUTO) 5.6 10^3/uL (1.5-6.6); NEUTROPHILS % (AUTO) 56.8 %; PLT - PLATELET COUNT 280 10^3/uL (130-450); RED BLOOD COUNT 3.75 10^6/uL (4.20-5.40); RED CELL DISTRIBUTION WIDTH 12.5 % (12.0-15.0); WHITE BLOOD COUNT 9.8 x10^3/uL (4.8-10.8)
[2020-06-23 16:35] LABS: ALBUMIN 4.4 g/dL (3.2-5.5); ALBUMIN/GLOBULIN RATIO 1.6 (1.0-2.2); BILIRUBIN,TOTAL 0.7 mg/dL (0.2-1.0); CALCIUM 11.2 mg/dL (8.5-10.3); TOTAL PROTEIN 7.1 g/dL (6.7-8.2)
[2020-06-23] MEDS ORDERED: IOVERSOL 320 50 ML VIAL PO ONE (17:17)
--- NOTE | 2020-06-23 17:23 | CT Report ---
PROCEDURE: Abdomen/Pelvis W INDICATIONS: CHOLELTHIASIS,DYSPEPSIA,WEIGHT LOSS CONTRAST: IV CONTRAST: Optiray 320 ml: 100 PO CONTRAST: Optiray 320 ml50 TECHNIQUE: After the administration of nonionic IV and oral contrast, 5 mm thick sections acquired from the diap hragms to the symphysis. 5 mm thick coronal and sagittal reformats were acquired. For radiation dos e reduction, the following was used: automated exposure control, adjustment of mA and/or kV accordin g to patient size. COMPARISON: None FINDINGS: Image quality: Excellent. ABDOMEN: Lung bases: Lung bases are clear. Heart size is normal. A small hiatal hernia is incidentally note d. Solid organs: Liver and spleen are normal in size and enhancement. Splenic granulomas are seen. Diff use fatty liver infiltration can be seen. Gallbladder wall does not appear thickened. Biliary sy stem is non dilated. Pancreas enhances normally. No adrenal nodules. Kidneys demonstrate normal si ze and enhancement, without hydronephrosis. Peritoneum and bowel: Bowel loops demonstrate normal wall thickness and caliber. No free fluid or a ir. There is a moderate amount of stool seen within the colon. A normal appendix is incidentally not ed. Nodes and vessels: No retroperitoneal or mesenteric adenopathy by size criteria. Aorta and inferior vena cava are normal in size. Miscellaneous: No ventral hernias. PELVIS: Genitourinary: Bladder wall thickness is normal. The uterus demonstrates an unremarkable appearance for age. There is a 5 cm right ovarian/right adnexal mass seen, which measures low density at 44 Carol nsfield units, as on series 3 image 63. Miscellaneous: No inguinal hernias or adenopathy. Bones: No suspicious bony lesions. No vertebral body compression fractures. Levoconvex thoracolumb ar scoliosis is seen. Degenerative changes are seen, which are most prominent involving the lumbar sp ine. IMPRESSION: Unremarkable gallbladder by CT. Small hiatal hernia. There is a moderate amount of stool seen within the colon. Please correlate with clinical constipatio n. There is a 5 cm right ovarian/right adnexal mass. In this postmenopausal patient, concern is raised f or ovarian neoplasm. Please consider additional workup, beginning with a dedicated pelvic ultrasound for further evaluation. Incidental note is made of: Fatty liver infiltration Prior granulomatous exposure. Normal appendix Mild levoconvex scoliotic curvature is seen. Reviewed by: George Morales MD on 06/23/2020 4:22 PM AKDT Approved by: George Morales MD on 06/23/2020 4:22 PM AKANN Station ID: [id number]
== END 2020-06-23 15:48 | disposition home or self-care (01) ==
LOC: LAB 15:47
PROVIDERS: ATTEND Family Medicine
DX: K30 Functional dyspepsia (principal); K80.20 Calculus of gallbladder without cholecystitis without obstruction; R63.4 Abnormal weight loss; K44.9 Diaphragmatic hernia without obstruction or gangrene; R93.89 Abnormal findings on diagnostic imaging of other specified body structures
CPT/HCPCS: 36415; 74177; 80053; 84134; 84443; 85025; Q9967

== ENCOUNTER 2020-06-29 08:00 | Outpatient (CLI) | payer MEDICARE, OTHER | END 2020-06-29 23:59 | disposition home or self-care (01) | LOC: LAB.WCP 08:00 | PROVIDERS: ATTEND Family Medicine | DX: R19.09 Other intra-abdominal and pelvic swelling, mass and lump (principal) | CPT/HCPCS: 36415; 86304 ==

== ENCOUNTER 2020-07-04 19:46 | Outpatient (CLI) | payer MEDICARE, OTHER ==
--- NOTE | 2020-07-05 10:08 | Ultrasound Report ---
PROCEDURE: Pelvic w/Transvaginal INDICATIONS: RT ANDEXAL MASS TECHNIQUE: Real-time scanning was performed of the pelvic organs, with image documentation. Additional endovagi nal scanning was necessary due to incomplete visualization of the adnexal and endometrial structures by transabdominal scanning. COMPARISON: CT abdomen/pelvis 06/23/2020, which showed an ovoid structure in the expected area of the right ovary measuring approximately 3.2 x 4.3 cm. There is a left-sided posterior intramural 2.3 x 2 .9 x 3.2 cm fibroid. At the cervix a nabothian cysts can be seen. FINDINGS: Transabdominal scanning: Limited scanning through the kidneys shows no hydronephrosis. No pathologi c free abdominal or pelvic fluid. Endovaginal scanning: Uterus: Uterus is normal in size at 2.4 x 4.3 x 5.3 cm., Anteverted The endometrium measures 9.0 mm in combined thickness. Ovaries: The right ovary is enlarged at 5.8 x 3.7 x 3.2 cm containing a mildly complex cystic struct ure measuring up to 3.2 x 3.1 x 4.3 cm, correlated with the area of CT concern, somewhat distant from the transvaginal scanning probe correlated with the position by CT scanning also. This structure con tains several internal septations. The left ovary could not be seen due to overlying bowel gas. IMPRESSION: The left ovary could not be seen due to bowel gas. The right ovary is positioned cephalad and somewha t anterior within the lower right pelvis, somewhat distant from the transvaginal probe and this corre lates well with the position of the structure seen by CT scanning 06/23/2020. There is a cystic struct ure in that area, with internal several septations and is considered mildly complex. It measures up t o 4.0 x 3.2 x 3.1 cm. Follow-up pelvic ultrasound in 6-8 weeks is recommended to assess for interval filter changer time. If the structure remains stable or enlarges gynecological consultation is recommend ed. Reviewed by: Kamlesh Sheldon MD on 07/05/2020 10:07 AM PDT Approved by: Kamlesh Sheldon MD on 07/05/2020 10:07 AM PDT Station ID: [id number]
== END 2020-07-04 19:47 | disposition home or self-care (01) ==
LOC: DI 19:46
PROVIDERS: ATTEND Family Medicine
DX: R19.09 Other intra-abdominal and pelvic swelling, mass and lump (principal)
CPT/HCPCS: 76830; 76856

== ENCOUNTER 2020-07-05 10:42 | Outpatient (CLI) | payer MEDICARE, OTHER ==
[2020-07-05 11:02] LABS: CALCIUM 10.1 mg/dL (8.5-10.3); CREATININE 0.9 mg/dL (0.4-1.0)
[2020-07-05 12:21] LABS: CREATININE,URINE 45.8 mg/dL; MICROALBUM/CREATININE RATIO,UR 17.5 ug/mg (<30.0); MICROALBUMIN,URINE 0.8 mg/dL (0-300.0)
[2020-07-05 12:32] LABS: HEMOGLOBIN A1c% 15.4 % (4.27-6.07)
== END 2020-07-05 10:43 | disposition home or self-care (01) ==
LOC: LAB 10:42
PROVIDERS: ATTEND Family Medicine
DX: E11.9 Type 2 diabetes mellitus without complications (principal)
CPT/HCPCS: 36415; 80048; 82043; 82570; 83036

== ENCOUNTER 2020-07-06 11:07 | Outpatient (CLI) | payer MEDICARE, OTHER ==
[2020-07-06 19:19] LABS: BILIRUBIN,URINE NEGATIVE (NEGATIVE); GLUCOSE, URINE (UA) >=1000 mg/dL (NEGATIVE); KETONES,URINE (UA) TRACE mg/dL (NEGATIVE); LEUKOCYTE ESTERASE, URINE NEGATIVE (NEGATIVE); NITRITE,URINE NEGATIVE (NEGATIVE); OCCULT BLOOD,URINE NEGATIVE (NEGATIVE); PH,URINE 5.5 PH (5.0-7.5); PROTEIN,URINE NEGATIVE (NEGATIVE); UROBILINOGEN,URINE 0.2 (NORMAL) E.U./dL (NORMAL)
[2020-07-06 19:34] LABS: BACTERIA,URINE Rare /HPF (None Seen); CLARITY,URINE CLEAR (CLEAR); RBC,URINE 0-5 /HPF (0-5); SQUAMOUS EPITHELIAL CELL,UR RARE Squamous (<= Few)
== END 2020-07-06 23:59 | disposition home or self-care (01) ==
LOC: LAB.R 11:07
PROVIDERS: ATTEND Family Medicine
DX: R30.0 Dysuria (principal)
CPT/HCPCS: 81001; 87086

== ENCOUNTER 2020-07-13 12:57 | Outpatient (CLI) | payer MEDICARE, OTHER | END 2020-07-13 12:58 | disposition home or self-care (01) | LOC: LAB 12:57 | PROVIDERS: ATTEND Obstetrics & Gynecology | DX: R19.09 Other intra-abdominal and pelvic swelling, mass and lump (principal) | CPT/HCPCS: 36415; 82378 ==

== ENCOUNTER 2020-08-15 17:30 | Outpatient (CLI) | payer MEDICARE, OTHER | END 2020-08-15 17:31 | disposition home or self-care (01) | LOC: COV 17:30 | PROVIDERS: ATTEND Internal Medicine Gastroenterology | DX: Z01.818 Encounter for other preprocedural examination (principal); K21.9 Gastro-esophageal reflux disease without esophagitis; Z20.828 Contact with and (suspected) exposure to other viral communicable diseases ==

== ENCOUNTER 2020-08-21 06:16 | Day surgery (SDC) | payer MEDICARE, OTHER ==
[2020-08-21] MEDS ORDERED: LACTATED RINGERS 1,000 ML IV ONE ×2 (07:09→07:57)
[2020-08-21] MEDS ORDERED: LIDO GARGLE 30 ML BOTTLE PO ONE (07:35)
[2020-08-21] MEDS ORDERED: fentaNYL 100 MCG/2 ML VIAL IVP ONE (07:36)
[2020-08-21] MEDS ORDERED: MIDAZOLAM 2 MG/2 ML VIAL IVP ONE (07:36)
[2020-08-21] MEDS ORDERED: BENZOCAINE/TETRACAINE/BUTAMBEN 20 GM TOP ONE (07:41)
[2020-08-21] MEDS ORDERED: LIDO GARGLE 30 ML BOTTLE ONE (07:41)
[2020-08-21 08:45] VITALS: BP 111/83
== END 2020-08-21 06:17 | disposition home or self-care (01) ==
LOC: SDS 06:16
PROVIDERS: ATTEND Internal Medicine Gastroenterology
PROC: 0DB18ZX Excision of Upper Esophagus, Via Natural or Artificial Opening Endoscopic, Diagnostic (ICD-10-PCS; 2020-08-21)
PROC: 0DB38ZX Excision of Lower Esophagus, Via Natural or Artificial Opening Endoscopic, Diagnostic (ICD-10-PCS; principal; 2020-08-21 07:30)
DX: K21.9 Gastro-esophageal reflux disease without esophagitis (principal); R13.10 Dysphagia, unspecified; I10 Essential (primary) hypertension
CPT/HCPCS: 43239; A9270; J7120

== ENCOUNTER 2020-08-25 11:34 | Outpatient (CLI) | payer MEDICARE, OTHER | END 2020-08-25 11:35 | disposition home or self-care (01) | LOC: LAB 11:34 | PROVIDERS: ATTEND Obstetrics & Gynecology | DX: Z01.818 Encounter for other preprocedural examination (principal); R93.89 Abnormal findings on diagnostic imaging of other specified body structures; N83.201 Unspecified ovarian cyst, right side; E11.9 Type 2 diabetes mellitus without complications; Z20.828 Contact with and (suspected) exposure to other viral communicable diseases | CPT/HCPCS: 93005; U0004 ==

== ENCOUNTER 2020-08-28 09:13 | Outpatient (CLI) | payer MEDICARE, OTHER ==
[2020-08-28 10:01] LABS: CALCIUM 10.8 mg/dL (8.5-10.3); CREATININE 0.8 mg/dL (0.4-1.0)
[2020-08-28 12:13] LABS: HEMOGLOBIN A1c% 8.2 % (4.27-6.07)
== END 2020-08-28 09:14 | disposition home or self-care (01) ==
LOC: LAB 09:13
PROVIDERS: ATTEND Obstetrics & Gynecology
DX: Z01.812 Encounter for preprocedural laboratory examination (principal); R93.89 Abnormal findings on diagnostic imaging of other specified body structures; N83.201 Unspecified ovarian cyst, right side; E11.9 Type 2 diabetes mellitus without complications
CPT/HCPCS: 36415; 80048; 83036; 86850; 86900; 86901

== ENCOUNTER 2020-08-31 06:14 | Day surgery (SDC) | payer MEDICARE, OTHER ==
[2020-08-31] MEDS ORDERED: ceFAZolin 2 GM/50 ML 2 GM/50 ML BAG IV ONE (06:30)
[2020-08-31] MEDS ORDERED: MIDAZOLAM 2 MG/2 ML VIAL ONE (07:01)
[2020-08-31] MEDS ORDERED: fentaNYL 100 MCG/2 ML VIAL ONE ×2 (07:01→10:04)
[2020-08-31] MEDS ORDERED: LIDOCAINE-MPF 2% 5 ML VIAL ONE (07:02)
[2020-08-31] MEDS ORDERED: PROPOFOL 200 MG/20 ML VIAL IVP ONE (07:02)
[2020-08-31] MEDS ORDERED: LACTATED RINGERS 1,000 ML IV ONE (07:09)
--- NOTE | 2020-08-31 07:25 | ANESTHESIA ---
Pre-Anesthesia VS, & Labs - Diagnosis thickened endometrium, R ovarian mass - Procedure Bilat laparoscopic salpingo-oopherectomy, myosure, D&C Vital Signs: Temp Pulse Resp BP Pulse Ox 36.6 C 62 18 123/66 96 08/31/20 06:41 08/31/20 06:41 08/31/20 06:41 08/31/20 06:41 08/31/20 06:41 Height: 5 ft 2 in Weight (kg): 74.3 kg Body Mass Index: 29.9 BMI Classification: Overweight - NPO >8 hours - Is Patient ?: No - Lab Results Current Lab Results: Laboratory Tests 08/31/20 07:02: POC Whole Bld Glucose 139 H Lab results reviewed: Yes Home Medications and Allergies Aspirin [Adult Low Dose Aspirin EC] 81 mg PO DAILY 10/07/18 Lisinopril/Hydrochlorothiazide [Lisinopril-Hctz 20-25 mg Tab] 1 tab PO DAILY 10/07/18 Simvastatin 20 mg PO DAILY 10/07/18 Spironolactone 25 mg PO BID 06/04/19 Insulin Glargine [Lantus Solostar] 10 units SQ HS 08/18/20 Omeprazole Magnesium 20 mg PO DAILY 08/18/20 Allergies/Adverse Reactions: Allergies Allergy/AdvReac Type Severity Reaction Status Date / Time latex Allergy Mild irritation Verified 06/07/19 07:01 of skin; pruritis epinephrine AdvReac Intermediate Tachycardia Verified 10/08/18 10:23 [From Xylocaine with with local Epinephrine] injection lidocaine AdvReac Intermediate Tachycardia Verified 10/08/18 10:23 [From Xylocaine with with local Epinephrine] injection Sulfa (Sulfonamide AdvReac Intermediate Nausea Verified 10/08/18 10:23 Antibiotics) nitrofurantoin AdvReac Emesis Verified 06/04/19 15:41 [From Macrobid] Anes History & Medical History - Anesthetic History Anesthesia Complications: reports: No previous complications Family history of Anesthesia Complications: Denies Family history of Malignant Hyperthermia: Denies - Medical History Cardiovascular: reports: Hypertension, High cholesterol, Murmur Pulmonary: reports: None Gastrointestinal: reports: GERD Urinary: reports: Retention, Other Neuro: reports: None. denies: CVA, TIA, Headaches Musculoskeletal: reports: Osteoarthritis Endocrine/Autoimmune: reports: None, Type 2 diabetes (new dx) Skin: reports: None Smoking Status: Never smoker Psychosocial: reports: No issues indicated History of Cancer?: No - Surgical History General: Colonoscopy, EGD Eyes Ears Nose Throat (EENT): Tonsil/Adenoidectomy Urologic: Bladder surgery Gynecologic: Tubal ligation Exam General: Alert, Oriented x3, Cooperative Dental: Dentures full Upper Mouth Openin Fingerbreadth Neck Mobility: Normal Mallampati classification: II Thyromental Distance: greater than 6 cm Respiratory: Lungs clear, Normal breath sounds, No respiratory distress, Decreased breath sounds Cardiovascular: Regular rate, Other (systolic murmur) Neurological: Normal speech Mental/Cognitive Status: Alert/Oriented X3, Normal for patient Cognitive Status: Within normal limits Plan Anesthesia Type: General Consent for Procedure(s) Verified and Reviewed: Yes Code Status: Attempt Resuscitation ASA classification: 3-Severe systemic disease Is this case an emergency?: No
[2020-08-31] MEDS ORDERED: fentaNYL 100 MCG/2 ML VIAL IVP PRN (07:27)
[2020-08-31] MEDS ORDERED: ATROPINE ABBOJECT 1 MG/10 ML SYRINGE IVP PRN (07:27)
[2020-08-31] MEDS ORDERED: MORPHINE 2 MG/ML CARPUJECT IVP PRN (07:27)
[2020-08-31] MEDS ORDERED: METOCLOPRAMIDE 10 MG/2 ML VIAL IVP PRN (07:27)
[2020-08-31] MEDS ORDERED: NALOXONE 0.4 MG/ML VIAL IVP PRN (07:27)
[2020-08-31] MEDS ORDERED: ONDANSETRON 4 MG/2 ML VIAL IVP PRN ×2 (07:27→10:01)
[2020-08-31] MEDS ORDERED: ePHEDrine 50 MG/ML VIAL IVP PRN (07:27)
[2020-08-31] MEDS ORDERED: BUPIVACAINE 0.5%-EPI 1:200000 PF 30 ML VIAL ONE (07:56)
[2020-08-31] MEDS ORDERED: LACTATED RINGERS 1,000 ML IV SCH (08:00)
[2020-08-31] MEDS ORDERED: ROCURONIUM 50 MG/5 ML VIAL ONE ×2 (09:15)
[2020-08-31] MEDS ORDERED: BUPIVACAINE 0.5%-EPI 1:200000 PF 30 ML VIAL SUBQ ONE (09:51)
[2020-08-31] MEDS ORDERED: oxyCODONE 5 MG TABLET PO PRN (10:01)
[2020-08-31] MEDS ORDERED: KETOROLAC 30 MG/ML VIAL IVP PRN (10:02)
[2020-08-31] MEDS ORDERED: DEXAMETHASONE 4 MG/ML VIAL ONE (10:03)
[2020-08-31] MEDS ORDERED: ONDANSETRON 4 MG/2 ML VIAL ONE ×2 (10:03→12:41)
[2020-08-31] MEDS ORDERED: BUPIVACAINE 0.25% PF 30 ML VIAL ONE (10:03)
[2020-08-31] MEDS ORDERED: KETOROLAC 30 MG/ML VIAL ONE (10:12)
--- NOTE | 2020-08-31 10:13 | OPERATIVE REPORT ---
Operative Report - General Procedure Date: 08/31/20 Planned Procedure: hYSTERSCOPY WITH MYOSURE, LAPROSCOPIC BILATERAL SALPINGO OOPERERECTOMY Pre-Op Diagnosis: ENDOMETRIAL POLYP, RIGHT OVARIAL CYST - Procedure Note Primary Surgeon: TANIA BLANCO MD Secondary Surgeon: BRENDA LEE MD Anesthesia Provider: Demario SOTO CRNA Anesthesia Technique: General ET tube Pathology: ENDOMETRIAL POLYP, BILATERAL SALPINGOOPHERECTOMY, CYST FLUID, PERTONEAL WASHINGS. IV Fluids (mL): 1,300 Estimated Blood Loss (mL): 25 Urine Output (mL): 100 Findings: 900 FLUID DEFICIT.
[2020-08-31] MEDS ORDERED: LACTATED RINGERS 800 ML IV ONE (10:15)
[2020-08-31] MEDS ORDERED: BUPIVACAINE 0.25% PF 30 ML VIAL SUBQ ONE (10:19)
[2020-08-31] MEDS: HYDROmorphone 0.5 MG/0.5 ML SYRINGE IVP PRN ×2 (10:34→10:39)
[2020-08-31] MEDS ORDERED: HYDROmorphone 0.5 MG/0.5 ML SYRINGE ONE (10:41)
[2020-08-31] MEDS ORDERED: ACETAMINOPHEN 1,000 MG/100 ML 100 ML IV ONE (11:02)
[2020-08-31] MEDS ORDERED: oxyCODONE 5 MG TABLET ONE (11:09)
--- NOTE | 2020-08-31 12:17 | OPERATIVE REPORT ---
DATE OF SERVICE: 08/31/2020 Physician: Nico Chambers MD PREOPERATIVE DIAGNOSES 1. Thickened endometrium, suspect endometrial polyp, stenotic cervix. 2. Right ovarian cyst. POSTOPERATIVE DIAGNOSES 1. Thickened endometrium, suspect endometrial polyp, stenotic cervix. 2. Right ovarian cyst. PROCEDURE: Hysteroscopy with D and C with MyoSure followed with laparoscopic bilateral salpingo-oophorectomy and pelvic washings. SURGEON: Nico Chambers MD BORING MILL OPERATOR FOR METAL: Ilene Rich MD ANESTHESIA: General via endotracheal tube. ANESTHESIA PROVIDER: Wellington Zhang CRNA ESTIMATED BLOOD LOSS: 25 mL IV FLUIDS: 1300 mL URINE OUTPUT: 100 mL FLUID DEFICIT: From her hysteroscopy was 900 mL FINDINGS: Upon entering the abdominal cavity, there was a cyst in the right ovary. This was as previously described on ultrasonic studies. There is no evidence of studding or excess abdominal fluid. Upon doing the hysteroscopy, there was evidence of endometrial polyp in the endometrial cavity. PROCEDURE: Following adequate general anesthesia, patient was placed in dorsal lithotomy position in [facility]. At this point, she was positioned in the normal way and then she was prepped and draped in the usual fashion. A timeout was performed, at which issues were addressed. The concerns about an irregular heartbeat was addressed. At this point, a speculum was placed in the vagina. The cervix was visualized, grasped with a single-tooth tenaculum and then dilated up to 8 mm. Following this, the hysteroscope was introduced. There was evidence of a polyp filling the endometrial cavity. At this point, the MyoSure was then placed and then the polyp was resected. During this procedure, there was an imbalance in the hysteroscopic fluid secondary to the bag, which collected the fluid was not opened. This was then corrected and then proceeded. There was a total imbalance of 900 mL. At this point, the uterus was sounded to 8 cm. A [place] uterine manipulator was then placed in the cervix and the balloon insufflated. The trimmer and borer machine operator's gloves were changed and then a stab wound was made in the subumbilical area following local anesthesia with 0.25% Marcaine with epinephrine. An 5 mm trocar and sheath were placed under direct visualization. Two additional ports were placed, both in the left and the right lower quadrants following skin incisions and local anesthesia with 0.5% Marcaine with epinephrine. At this point, the pelvis was inspected. The pelvis was irrigated and with 60 mL of sterile saline, care was taken to irrigate around the right ovary as this was the ovary which was enlarged. The ovaries were both inspected bilaterally. The right ureter was identified. Then, the LigaSure was used to doubly cauterize and transect the infundibulopelvic ligament. This was then carried across the attachment of the ovary all the way to the cornua. The ovary was then placed in the anterior portion in front of the uterus. At this point, in the right tube there were adhesions of the bowel to the left pelvic sidewall. These were lysed and then the fallopian tube on the left hand side was grasped and the infundibulopelvic ligament was doubly cauterized and then transected. The ovary was then cauterized and transected from its attachments. This was then placed in the abdominal cavity. At this point, the incision on the right lower quadrant was extended and a #10 mm trocar and sheath were placed. An EndoCatch bag was then placed, and the left ovary, which was smaller, was placed in the bag and brought up through the right incision. The right tube and ovary were then placed in a second EndoCatch bag and then this was brought up to the abdominal wall. This was unable to be brought through the incision despite trying to open the trocar site with a peon. An 18-gauge spinal needle was then introduced into the cyst and it was drained of a chocolate colored fluid. The ovary was then brought out through the abdominal wall. There was some spillage of fluid, which appeared to occur outside the tract. This was mopped with a lap sponge and then irrigated with sterile water. At this point, the resection sites were inspected. There was no evidence of any bleeding. A Garo-Jared was then used to close the right lower quadrant incision with 0 Vicryl. All incisions were then closed using 4-0 Monocryl subcuticular, then Dermabond was placed. The instruments were removed from the vagina, which include the [place]. The patient tolerated the procedure well and was taken to recovery in stable condition. Sponge and needle counts were correct. Dr. Rich, during this procedure, was instrumental with retraction as well as utilizing the LigaSure for resection of the left ovary. Her help was invaluable. TD: 08/31/2020 10:28 JOAQUÍN
[2020-08-31 12:39] VITALS: BP 113/52
--- NOTE | 2020-08-31 15:04 | ANESTHESIA POST OP EVALUATION ---
Anesthesia Post Eval - Post Anesthesia Eval Vitals: Last Vital Signs Temp 36.6 C 08/31/20 12:38 Pulse 61 08/31/20 12:38 Resp 16 08/31/20 12:38 BP 113/52 L 08/31/20 12:38 Pulse Ox 94 08/31/20 12:38 CV Function Including HR & BP: positive: Stable Pain Control: positive: Satisfactory Nausea & Vomiting: positive: Negative Mental Status: positive: Baseline Respiratory Status: Airway Patent Hydration Status: Satisfactory Anesthesia Complications: positive: None
== END 2020-08-31 06:15 | disposition home or self-care (01) ==
LOC: SDS 06:14
PROVIDERS: ATTEND Obstetrics & Gynecology
PROC: 0UB98ZZ Excision of Uterus, Via Natural or Artificial Opening Endoscopic (ICD-10-PCS; principal; 2020-08-31 07:30)
DX: N84.0 Polyp of corpus uteri (principal); N83.02 Follicular cyst of left ovary; D27.0 Benign neoplasm of right ovary; N80.1 Endometriosis of ovary; N88.2 Stricture and stenosis of cervix uteri; E11.9 Type 2 diabetes mellitus without complications; I49.9 Cardiac arrhythmia, unspecified; I35.0 Nonrheumatic aortic (valve) stenosis; I10 Essential (primary) hypertension; E78.5 Hyperlipidemia, unspecified; K21.9 Gastro-esophageal reflux disease without esophagitis; E66.9 Obesity, unspecified; Z68.34 Body mass index [BMI] 34.0-34.9, adult; Z79.82 Long term (current) use of aspirin; Z79.4 Long term (current) use of insulin; Z79.899 Other long term (current) drug therapy; Z87.891 Personal history of nicotine dependence
CPT/HCPCS: 58558; 58661; A9270; J0131; J0690; J1170; J7120

== ENCOUNTER 2020-09-14 08:41 | Outpatient (CLI) | payer MEDICARE, OTHER ==
--- NOTE | 2020-09-14 14:41 | Nuclear Medicine Report ---
PROCEDURE: Gastric Empty Small Bowel INDICATIONS: DELAYED GASTRIC EMPTYING RADIOPHARMACEUTICAL: mCi Tc-99m sulfur colloid in an egg sandwich. TECHNIQUE: A Tc-99m labeled sulfur colloid labeled egg sandwich or oatmeal was served to the patient. Anterior and posterior planar images of the abdomen were obtained at 0 minutes and 30 minutes, then at hourly intervals up to 4 hours. The patient was upright and ambulating during the interval. COMPARISON: None available. FINDINGS: The stomach has normal size, morphology, and position. There is normal emptying of solid gastric con tents from the stomach by visual inspection. No gastroesophageal reflux is visualized. The percentage of tracer retained at specific time points are as follows: Time point Percent gastric retention Normal range 30 minutes 101 70% or more 1 hour 97.0 30% to 90% 2 hours 42.9 60% or less 3 hours 2.0 30% or less 4 hours 98.0 10% or less IMPRESSION: Initial delayed gastric emptying at 1 hour but normal at 2, 3, and 4 hours. Reviewed by: Chris Upton on 09/14/2020 2:39 PM PST Approved by: Chris Upton on 09/14/2020 2:39 PM PST Station ID: [id number]
== END 2020-09-14 08:42 | disposition home or self-care (01) ==
LOC: DI 08:41
PROVIDERS: ATTEND Family Medicine
DX: K31.89 Other diseases of stomach and duodenum (principal)
CPT/HCPCS: 78265

== ENCOUNTER 2020-12-25 08:00 | Outpatient (CLI) | payer MEDICARE, OTHER ==
[2020-12-25 12:10] LABS: BASOPHILS # (AUTO) 0.1 10^3/uL (0.0-0.1); EOSINOPHILS # (AUTO) 0.1 10^3/uL (0.0-0.7); EOSINOPHILS % (AUTO) 2.1 %; HCT - HEMATOCRIT 38.7 % (37.0-47.0); HGB - HEMOGLOBIN 12.6 g/dL (12.0-16.0); LYMPHOCYTES # (AUTO) 1.3 10^3/uL (1.5-3.5); LYMPHOCYTES % (AUTO) 19.6 %; MEAN CORPUSCULAR HEMOGLOBIN 31.4 pg (27.0-31.0); MEAN CORPUSCULAR HGB CONC 32.6 g/dL (32.0-36.0); MEAN CORPUSCULAR VOLUME 96.5 fL (81.0-99.0); MEAN PLATELET VOLUME 9.3 fL (7.9-10.8); MONOCYTES # (AUTO) 0.7 10^3/uL (0.0-1.0); MONOCYTES % (AUTO) 10.3 %; NEUTROPHILS # (AUTO) 4.5 10^3/uL (1.5-6.6); NEUTROPHILS % (AUTO) 66.7 %; PLT - PLATELET COUNT 284 10^3/uL (130-450); RED BLOOD COUNT 4.01 10^6/uL (4.20-5.40); RED CELL DISTRIBUTION WIDTH 13.4 % (12.0-15.0); WHITE BLOOD COUNT 6.8 x10^3/uL (4.8-10.8)
[2020-12-25 12:19] LABS: CREATININE,URINE 75.3 mg/dL; MICROALBUMIN,URINE 0.9 mg/dL (0-300.0)
[2020-12-25 12:42] LABS: ESTIMATED AVERAGE GLUCOSE 128 mg/dL (70-100); HEMOGLOBIN A1c% 6.1 % (4.27-6.07)
[2020-12-25 13:06] LABS: ALBUMIN 4.4 g/dL (3.2-5.5); ALBUMIN/GLOBULIN RATIO 1.8 (1.0-2.2); ALKALINE PHOSPHATASE 38 IU/L (42-121); ALT ALANINE AMINOTRANSFERASE 34 IU/L (10-60); AST ASPARTATE AMINOTRANSFERASE 23 IU/L (10-42); BILIRUBIN,TOTAL 0.6 mg/dL (0.2-1.0); BUN - BLOOD UREA NITROGEN 38 mg/dL (6-20); CALCIUM 10.5 mg/dL (8.5-10.3); CARBON DIOXIDE - CO2 24 mmol/L (21-32); CHLORIDE 104 mmol/L (101-111); CHOLESTEROL 168 mg/dL; CREATININE 0.9 mg/dL (0.4-1.0); GFR - MDRD 61 (>89); GLUCOSE 123 mg/dL (70-100); HDL CHOLESTEROL 56 mg/dL; LDL CHOLESTEROL,CALCULATED 97 mg/dL; LDL/HDL RATIO 1.7 (<4.4); POTASSIUM 4.4 mmol/L (3.5-5.0); SODIUM 139 mmol/L (135-145); TOTAL PROTEIN 6.9 g/dL (6.7-8.2); TRIGLYCERIDES 73 mg/dL; VLDL CHOLESTEROL 15 mg/dL
== END 2020-12-25 23:59 | disposition home or self-care (01) ==
LOC: LAB.WCP 08:00
PROVIDERS: ATTEND Family Medicine
DX: E11.9 Type 2 diabetes mellitus without complications (principal)
CPT/HCPCS: 36415; 80053; 80061; 82043; 82570; 83036; 83721; 85025

== ENCOUNTER 2021-03-27 10:54 | Outpatient (CLI) | payer MEDICARE, OTHER ==
[2021-03-27 18:22] LABS: ALBUMIN 4.4 g/dL (3.2-5.5); ALBUMIN/GLOBULIN RATIO 1.6 (1.0-2.2); BILIRUBIN,TOTAL 0.7 mg/dL (0.2-1.0); CREATININE 0.8 mg/dL (0.4-1.0); POTASSIUM 4.3 mmol/L (3.5-5.0); TOTAL PROTEIN 7.2 g/dL (6.7-8.2)
[2021-03-27 20:04] LABS: ESTIMATED AVERAGE GLUCOSE 120 mg/dL (70-100); HEMOGLOBIN A1c% 5.8 % (4.27-6.07)
== END 2021-03-27 23:59 | disposition home or self-care (01) ==
LOC: LAB.WCP 10:54
PROVIDERS: ATTEND Family Medicine
DX: E11.9 Type 2 diabetes mellitus without complications (principal); E83.52 Hypercalcemia
CPT/HCPCS: 36415; 80053; 82306; 82330; 83036; 83970

== ENCOUNTER 2021-06-14 11:21 | Outpatient (CLI) | payer MEDICARE, OTHER ==
--- NOTE | 2021-06-15 10:10 | Mammography Report ---
BILATERAL DIGITAL SCREENING MAMMOGRAM 3D/2D: 06/14/2021 CLINICAL: Routine screening. Comparison is made to exams dated: 04/06/2020 mammogram, 01/11/2019 mammogram, 11/11/2017 mammogram - [facility], 10/28/2016 mammogram, 10/27/2015 mammogram, and 11/08/2014 mammogram - [facility]. There are scattered fibroglandular elements in both breasts. There are benign calcifications in the right breast. There also are benign vascular calcifications i n both breasts. No significant masses, calcifications, or other findings are seen in either breast. There has been no significant interval change. IMPRESSION: BENIGN There is no mammographic evidence of malignancy. A 1 year screening mammogram is recommended. This exam was interpreted at Station ID: [id number]. NOTE: For mammograms, a report in lay terms will be sent to the patient. Approximately 15% of breast malignancies will not be visualized mammographically. In the management of a palpable breast mass, a negative mammogram must not discourage biopsy of a clinically suspicious lesion. Electronically Signed By: Chris Upton acr/penrad:06/14/2021 12:37:00 ACR BI-RADS Category 2: Benign Finding(s) 3342F PARENCHYMAL PATTERN: (A) - The breast(s) demonstrate(s) scattered fibroglandular densities. BI-RADS CATEGORY: (2) - 2 RECOMMENDATION: (ANNUAL) - Recommend routine annual screening mammography. [id number] 1 year screening LATERALITY: (B)
== END 2021-06-14 11:22 | disposition home or self-care (01) ==
LOC: DI 11:21
DX: Z12.31 Encounter for screening mammogram for malignant neoplasm of breast (principal)

== ENCOUNTER 2021-07-20 07:55 | Outpatient (CLI) | payer MEDICARE, OTHER ==
--- NOTE | 2021-07-20 09:27 | DEXA Report ---
PROCEDURE: DEXA Spine and/or Hip INDICATIONS: POST MENOPAUSAL TECHNIQUE: Dual energy x-ray absorptiometry (DXA) was performed on a [employer] System. Regions measur ed are the AP Spine, femoral neck, and if needed forearm. COMPARISON: None. FINDINGS: Lumbar Spine: Bone Mineral Density 1.212 g/cm/cm,T score 0.3, normal Left Femoral Neck: Bone Mineral Density 0.924 g/cm/cm, T score -0.7, normal (T score greater or equal to -1.0: NORMAL) (T score from -1.1 to -2.4: OSTEOPENIA) (T score less than or equal to -2.5 to: OSTEOPOROSIS) Impression: Normal bone mineral density as detailed above. Patients with diagnosis of osteoporosis or osteopenia should have regular bone mineral density assess ment. For those eligible for Medicare, routine testing is allowed once every 2 years. Testing frequ ency can be increased for patients who have rapidly progressing disease or for those who are receivin g medical therapy to restore bone mass. Reviewed by: Erlin Cote MD on 07/20/2021 9:26 AM PDT Approved by: Erlin Cote MD on 07/20/2021 9:26 AM PDT Station ID: [id number]
== END 2021-07-20 07:56 | disposition home or self-care (01) ==
LOC: DI 07:55
PROVIDERS: ATTEND Family Medicine
DX: Z78.0 Asymptomatic menopausal state (principal)

== ENCOUNTER 2021-09-18 11:34 | Outpatient (CLI) | payer MEDICARE, OTHER ==
[2021-09-18 11:53] LABS: BASOPHILS # (AUTO) 0.1 10^3/uL (0.0-0.1); EOSINOPHILS # (AUTO) 0.2 10^3/uL (0.0-0.7); EOSINOPHILS % (AUTO) 2.6 %; HCT - HEMATOCRIT 34.5 % (37.0-47.0); HGB - HEMOGLOBIN 11.4 g/dL (12.0-16.0); LYMPHOCYTES # (AUTO) 2.1 10^3/uL (1.5-3.5); LYMPHOCYTES % (AUTO) 30.6 %; MEAN CORPUSCULAR HEMOGLOBIN 31.5 pg (27.0-31.0); MEAN CORPUSCULAR VOLUME 95.3 fL (81.0-99.0); MEAN PLATELET VOLUME 8.5 fL (7.9-10.8); MONOCYTES # (AUTO) 0.7 10^3/uL (0.0-1.0); MONOCYTES % (AUTO) 9.9 %; NEUTROPHILS # (AUTO) 3.9 10^3/uL (1.5-6.6); NEUTROPHILS % (AUTO) 55.8 %; PLT - PLATELET COUNT 262 10^3/uL (130-450); RED BLOOD COUNT 3.62 10^6/uL (4.20-5.40)
[2021-09-18 12:09] LABS: CREATININE,URINE 101.4 mg/dL; MICROALBUM/CREATININE RATIO,UR 6.9 ug/mg (<30.0); MICROALBUMIN,URINE 0.7 mg/dL (0-300.0)
[2021-09-18 12:15] LABS: ALBUMIN 4.5 g/dL (3.2-5.5); ALBUMIN/GLOBULIN RATIO 1.6 (1.0-2.2); ALKALINE PHOSPHATASE 59 IU/L (42-121); ALT ALANINE AMINOTRANSFERASE 26 IU/L (10-60); AST ASPARTATE AMINOTRANSFERASE 18 IU/L (10-42); BILIRUBIN,TOTAL 0.7 mg/dL (0.2-1.0); BUN - BLOOD UREA NITROGEN 55 mg/dL (6-20); CALCIUM 10.3 mg/dL (8.5-10.3); CARBON DIOXIDE - CO2 16 mmol/L (21-32); CHLORIDE 107 mmol/L (101-111); CHOL/HDL RATIO 3.1 (<4.4); CHOLESTEROL 180 mg/dL; CREATININE 1.4 mg/dL (0.4-1.0); GFR - MDRD 36 (>89); GLUCOSE 129 mg/dL (70-100); HDL CHOLESTEROL 58 mg/dL; LDL CHOLESTEROL,CALCULATED 108 mg/dL; LDL/HDL RATIO 1.9 (<4.4); POTASSIUM 5.5 mmol/L (3.5-5.0); SODIUM 132 mmol/L (135-145); TOTAL PROTEIN 7.3 g/dL (6.7-8.2); TRIGLYCERIDES 69 mg/dL; VLDL CHOLESTEROL 14 mg/dL
[2021-09-18 12:25] LABS: ESTIMATED AVERAGE GLUCOSE 131 mg/dL (70-100); HEMOGLOBIN A1c% 6.2 % (4.27-6.07)
== END 2021-09-18 11:35 | disposition home or self-care (01) ==
LOC: LAB 11:34
PROVIDERS: ATTEND Family Medicine
DX: E11.9 Type 2 diabetes mellitus without complications (principal)
CPT/HCPCS: 36415; 80053; 80061; 82043; 82570; 83036; 83721; 85025

== ENCOUNTER 2021-09-25 08:00 | Outpatient (CLI) | payer MEDICARE, OTHER ==
[2021-09-25 18:30] LABS: CREATININE 1.4 mg/dL (0.4-1.0)
== END 2021-09-25 23:59 ==
LOC: LAB.WCP 08:00
PROVIDERS: ATTEND Family Medicine
DX: E87.5 Hyperkalemia (principal)
CPT/HCPCS: 36415; 80048

== ENCOUNTER 2021-10-10 13:50 | Outpatient (CLI) | payer MEDICARE, OTHER ==
[2021-10-10 18:52] LABS: CALCIUM 10.4 mg/dL (8.5-10.3); CREATININE 1.3 mg/dL (0.4-1.0)
== END 2021-10-10 13:51 | disposition home or self-care (01) ==
LOC: LAB.N 13:50
PROVIDERS: ATTEND Family Medicine
DX: I10 Essential (primary) hypertension (principal)
CPT/HCPCS: 36415; 80048

== ENCOUNTER 2021-10-19 12:35 | Outpatient (CLI) | payer MEDICARE, OTHER ==
[2021-10-19 18:36] LABS: CALCIUM 9.9 mg/dL (8.5-10.3); CREATININE 1.1 mg/dL (0.4-1.0); POTASSIUM 4.3 mmol/L (3.5-5.0)
== END 2021-10-19 12:36 | disposition home or self-care (01) ==
LOC: LAB.N 12:35
PROVIDERS: ATTEND Family Medicine
DX: E87.1 Hypo-osmolality and hyponatremia (principal)
CPT/HCPCS: 36415; 80048; 83930; 83935; 84300

== ENCOUNTER 2021-12-05 14:01 | Outpatient (CLI) | payer MEDICARE, OTHER ==
[2021-12-05 18:06] LABS: CALCIUM 10.1 mg/dL (8.5-10.3); CREATININE 0.9 mg/dL (0.4-1.0); POTASSIUM 3.8 mmol/L (3.5-5.0)
== END 2021-12-05 14:02 | disposition home or self-care (01) ==
LOC: LAB.N 14:01
PROVIDERS: ATTEND Family Medicine
DX: R60.9 Edema, unspecified (principal)
CPT/HCPCS: 36415; 80048

== ENCOUNTER 2022-01-28 13:29 | Outpatient (CLI) | payer MEDICARE, OTHER ==
[2022-01-28 13:39] LABS: BASOPHILS % (AUTO) 0.7 %; EOSINOPHILS # (AUTO) 0.1 10^3/uL (0.0-0.7); EOSINOPHILS % (AUTO) 2.3 %; HCT - HEMATOCRIT 39.8 % (37.0-47.0); LYMPHOCYTES # (AUTO) 2.3 10^3/uL (1.5-3.5); LYMPHOCYTES % (AUTO) 37.3 %; MEAN CORPUSCULAR HGB CONC 32.7 g/dL (32.0-36.0); MEAN PLATELET VOLUME 8.4 fL (7.9-10.8); MONOCYTES # (AUTO) 0.6 10^3/uL (0.0-1.0); MONOCYTES % (AUTO) 10.3 %; NEUTROPHILS % (AUTO) 49.2 %; PLT - PLATELET COUNT 232 10^3/uL (130-450); RED BLOOD COUNT 4.19 10^6/uL (4.20-5.40); RED CELL DISTRIBUTION WIDTH 13.1 % (12.0-15.0)
[2022-01-28 13:59] LABS: ALBUMIN 4.3 g/dL (3.2-5.5); ALBUMIN/GLOBULIN RATIO 1.5 (1.0-2.2); ALKALINE PHOSPHATASE 63 IU/L (42-121); ALT ALANINE AMINOTRANSFERASE 31 IU/L (10-60); AST ASPARTATE AMINOTRANSFERASE 24 IU/L (10-42); BILIRUBIN,TOTAL 0.6 mg/dL (0.2-1.0); BUN - BLOOD UREA NITROGEN 23 mg/dL (6-20); CALCIUM 10.3 mg/dL (8.5-10.3); CARBON DIOXIDE - CO2 25 mmol/L (21-32); CHLORIDE 103 mmol/L (101-111); CHOL/HDL RATIO 2.5 (<4.4); CHOLESTEROL 181 mg/dL; CREATININE 0.9 mg/dL (0.4-1.0); GFR - MDRD 61 (>89); GLUCOSE 128 mg/dL (70-100); HDL CHOLESTEROL 73 mg/dL; LDL CHOLESTEROL,CALCULATED 96 mg/dL; LDL/HDL RATIO 1.3 (<4.4); POTASSIUM 4.1 mmol/L (3.5-5.0); SODIUM 139 mmol/L (135-145); TOTAL PROTEIN 7.1 g/dL (6.7-8.2); TRIGLYCERIDES 59 mg/dL; VLDL CHOLESTEROL 12 mg/dL
[2022-01-28 20:44] LABS: ESTIMATED AVERAGE GLUCOSE 123 mg/dL (70-100); HEMOGLOBIN A1c% 5.9 % (4.27-6.07)
== END 2022-01-28 13:30 | disposition home or self-care (01) ==
LOC: LAB 13:29
PROVIDERS: ATTEND Family Medicine
DX: E11.9 Type 2 diabetes mellitus without complications (principal)
CPT/HCPCS: 36415; 80053; 80061; 83036; 83721; 85025

== ENCOUNTER 2022-09-30 10:27 | Outpatient (CLI) | payer MEDICARE, OTHER ==
[2022-09-30 10:42] LABS: BASOPHILS % (AUTO) 0.7 %; EOSINOPHILS # (AUTO) 0.2 10^3/uL (0.0-0.7); EOSINOPHILS % (AUTO) 2.5 %; HCT - HEMATOCRIT 38.2 % (37.0-47.0); HGB - HEMOGLOBIN 12.7 g/dL (12.0-16.0); LYMPHOCYTES % (AUTO) 49.2 %; MEAN CORPUSCULAR HEMOGLOBIN 31.6 pg (27.0-31.0); MEAN CORPUSCULAR HGB CONC 33.2 g/dL (32.0-36.0); MEAN PLATELET VOLUME 8.3 fL (7.9-10.8); MONOCYTES # (AUTO) 0.6 10^3/uL (0.0-1.0); MONOCYTES % (AUTO) 9.5 %; NEUTROPHILS # (AUTO) 2.3 10^3/uL (1.5-6.6); NEUTROPHILS % (AUTO) 38.1 %; PLT - PLATELET COUNT 218 10^3/uL (130-450); RED BLOOD COUNT 4.02 10^6/uL (4.20-5.40); RED CELL DISTRIBUTION WIDTH 12.7 % (12.0-15.0)
[2022-09-30 11:03] LABS: ALBUMIN 4.3 g/dL (3.2-5.5); ALBUMIN/GLOBULIN RATIO 1.5 (1.0-2.2); ALKALINE PHOSPHATASE 63 IU/L (42-121); ALT ALANINE AMINOTRANSFERASE 42 IU/L (10-60); AST ASPARTATE AMINOTRANSFERASE 25 IU/L (10-42); BILIRUBIN,TOTAL 0.5 mg/dL (0.2-1.0); BUN - BLOOD UREA NITROGEN 25 mg/dL (6-20); CALCIUM 9.7 mg/dL (8.5-10.3); CARBON DIOXIDE - CO2 26 mmol/L (21-32); CHLORIDE 102 mmol/L (101-111); CHOL/HDL RATIO 2.9 (<4.4); CHOLESTEROL 179 mg/dL; CREATININE 0.8 mg/dL (0.4-1.0); GFR - MDRD 69 (>89); GLUCOSE 128 mg/dL (70-100); HDL CHOLESTEROL 62 mg/dL; LDL CHOLESTEROL,CALCULATED 102 mg/dL; LDL/HDL RATIO 1.6 (<4.4); POTASSIUM 3.9 mmol/L (3.5-5.0); SODIUM 137 mmol/L (135-145); TOTAL PROTEIN 7.1 g/dL (6.7-8.2); TRIGLYCERIDES 73 mg/dL; VLDL CHOLESTEROL 15 mg/dL
[2022-09-30 11:14] LABS: THYROID STIMULATING HORMONE 4.56 uIU/mL (0.34-5.60)
[2022-09-30 11:40] LABS: ESTIMATED AVERAGE GLUCOSE 134 mg/dL (70-100); HEMOGLOBIN A1c% 6.3 % (4.27-6.07)
== END 2022-09-30 10:28 | disposition home or self-care (01) ==
LOC: LAB 10:27
PROVIDERS: ATTEND Nurse Practitioner Family
DX: I10 Essential (primary) hypertension (principal); E78.5 Hyperlipidemia, unspecified; E11.9 Type 2 diabetes mellitus without complications
CPT/HCPCS: 36415; 80053; 80061; 83036; 83721; 84443; 85025

== ENCOUNTER 2022-10-25 14:25 | Outpatient (CLI) | payer MEDICARE, OTHER ==
--- NOTE | 2022-10-28 09:50 | Mammography Report ---
BILATERAL DIGITAL SCREENING MAMMOGRAM 3D/2D: 10/25/2022 CLINICAL: Routine screening. Family history of breast cancer. Comparison is made to exams dated: 04/06/2020 mammogram, 06/14/2021 mammogram, 01/11/2019 mammogram, mammogram - [facility], 10/28/2016 mammogram, and 10/27/2015 mammogram - [facility]. There are scattered areas of fibroglandular density in both breasts (category b / 25%-50% glandular t issue). There are benign calcifications in the right breast. There also are benign vascular calcifications i n both breasts. No significant masses, calcifications, or other findings are seen in either breast. There has been no significant interval change. IMPRESSION: BENIGN There is no mammographic evidence of malignancy. A 1 year screening mammogram is recommended. Based on the Tyrer Cuzick model (a risk assessment model) the patients lifetime risk is 4.4% and her 10 year risk is 0.0%. According to the ACR, ACS, and NCCN guidelines, an annual breast MRI exam suly g with mammogram is recommended if the patients lifetime risk is 20% or greater. This exam was interpreted at Station ID: [id number]. NOTE: For mammograms, a report in lay terms will be sent to the patient. Approximately 15% of breast malignancies will not be visualized mammographically. In the management of a palpable breast mass, a negative mammogram must not discourage biopsy of a clinically suspicious lesion. Electronically Signed By: Efra Mendez M.D., jr/tahir:10/25/2022 15:10:48 ACR BI-RADS Category 2: Benign Finding(s) 3342F PARENCHYMAL PATTERN: (A) - The breast(s) demonstrate(s) scattered fibroglandular densities. BI-RADS CATEGORY: (2) - 2 RECOMMENDATION: (ANNUAL) - Recommend routine annual screening mammography. [id number] 1 year screening LATERALITY: (B)
== END 2022-10-25 14:26 | disposition home or self-care (01) ==
LOC: DI 14:25
DX: Z12.31 Encounter for screening mammogram for malignant neoplasm of breast (principal); Z80.3 Family history of malignant neoplasm of breast

== ENCOUNTER 2022-11-27 11:31 | Outpatient (CLI) | payer MEDICARE, OTHER | END 2022-11-27 11:32 | disposition home or self-care (01) | LOC: DI 11:31 | PROVIDERS: ATTEND Nurse Practitioner Family | DX: I35.0 Nonrheumatic aortic (valve) stenosis (principal); I11.9 Hypertensive heart disease without heart failure | CPT/HCPCS: 93306 ==

== ENCOUNTER 2023-03-13 09:51 | Outpatient (CLI) | payer MEDICARE, OTHER ==
[2023-03-13 10:17] LABS: CALCIUM 9.7 mg/dL (8.5-10.3); CREATININE 0.9 mg/dL (0.4-1.0); POTASSIUM 4.2 mmol/L (3.5-5.0)
[2023-03-13 10:39] LABS: THYROID STIMULATING HORMONE 3.19 uIU/mL (0.34-5.60)
[2023-03-13 10:41] LABS: FREE T4 (FREE THYROXINE) 0.77 ng/dL (0.58-1.64)
== END 2023-03-13 09:52 | disposition home or self-care (01) ==
LOC: LAB 09:51
PROVIDERS: ATTEND Internal Medicine Cardiovascular Disease
DX: E78.5 Hyperlipidemia, unspecified (principal); I10 Essential (primary) hypertension
CPT/HCPCS: 36415; 80048; 84439; 84443

== ENCOUNTER 2023-04-09 10:48 | Outpatient (CLI) | payer MEDICARE, OTHER ==
[2023-04-09 11:49] LABS: BUN - BLOOD UREA NITROGEN 27 mg/dL (6-20); CALCIUM 9.8 mg/dL (8.5-10.3); CARBON DIOXIDE - CO2 26 mmol/L (21-32); CHLORIDE 109 mmol/L (101-111); CHOL/HDL RATIO 3.3 (<4.4); CHOLESTEROL 182 mg/dL; CREATININE 0.8 mg/dL (0.6-1.3); GFR - MDRD 69 (>89); GLUCOSE 132 mg/dL (74-104); HDL CHOLESTEROL 55 mg/dL; LDL CHOLESTEROL,CALCULATED 96 mg/dL; LDL/HDL RATIO 1.7 (<4.4); POTASSIUM 3.8 mmol/L (3.5-4.5); SODIUM 141 mmol/L (135-145); TRIGLYCERIDES 154 mg/dL (48-352); VLDL CHOLESTEROL 31 mg/dL
[2023-04-09 12:30] LABS: ESTIMATED AVERAGE GLUCOSE 148 mg/dL (70-100); HEMOGLOBIN A1c% 6.8 % (4.27-6.07)
== END 2023-04-09 10:49 | disposition home or self-care (01) ==
LOC: LAB 10:48
PROVIDERS: ATTEND Nurse Practitioner Family
DX: I10 Essential (primary) hypertension (principal); E11.9 Type 2 diabetes mellitus without complications; E78.5 Hyperlipidemia, unspecified
CPT/HCPCS: 36415; 80048; 80061; 83036; 83721

== ENCOUNTER 2023-06-04 14:06 | Outpatient (CLI) | payer MEDICARE, OTHER ==
--- NOTE | 2023-06-04 14:46 | Sleep Patient Instructions ---
Sleep Center Visit Summary - Patient Visit Information Reason for Visit: Initial consult for evaluation of sleep disordered breathing and other sleep issues. - Patient Instructions Instructions Attached: Sleep Study, Sleep Clinic Visit Additional Instructions: You will be completing a sleep study, either an in-lab polysomnography (PSG) or home sleep study (HST). You will follow-up in the sleep care office after the sleep study is completed to hear the results and talk about therapy, if needed. You will be called by our office staff to schedule this appointment, but you may contact us with any questions. - Clinic Information Contact: [facility] [address] [place] [address] [email or web address] T: [phone]
--- NOTE | 2023-06-04 14:52 | SLEEP CARE CONSULTATION ---
Information from patient questionnaire entered by Pilar Cummins. I have reviewed and concur with the information entered by Pilar Cummins. This document represents the service I personally performed and the decisions made by me, Zahra Rg ARNP. History of Present Illness Service Date and Time: 06/04/2023 1406 Reason for Visit: New patient Chief Complaint: reports: Unrefreshed sleep, Snoring, Excessive daytime sleepiness, Observed pauses in breathing, Fatigue, Frequent awakenings at night Date of Onset: SINCE 1961 Usual bedtime: 1230-2AM Time it takes to fall asleep: 5MIN Snores at night: Yes Observed to quit breathing while asleep: Yes Sleeps alone due to snoring: No Number of times waking at night: 3 Reasons for waking at night: reports: Snoring, Bathroom, Other (UNKNOWN, COMES TO BED MUCH LATER, TEMPATURE, STUFFY NOSE). denies: Choking, Gasping for air Toss, Turn, or Twitch while sleeping: No Recalls having dreams: Yes Usually gets out of bed at: 8AM-12PM Feels refreshed in the morning: No Morning headache: Yes (3-4 days a week; resolves in 1-2 hours) Sleepy or fatigued during the day: Yes Ever fallen asleep while driving: Yes (drowsy driving; no accidents) Takes day naps: Yes (1 time a week for about 30 mins to 2 hours) Dreams during day naps: Yes Prior sleep studies: Yes Additional HPI information: I had the pleasure of seeing FLORIDA MEJIAS today regarding the possibility of her having a sleep disorder. Her current complaints are unrefreshed sleep, snoring, excessive daytime sleepiness, observed pauses in breathing, fatigue and frequent night awakenings. She states her transformer coil winder recommended she have an evaluation for sleep apnea. She was told her high blood pressure could be affected by a sleep disorder. Her tells her that she snores and will have pauses in breathing when sleeping. She states she was told that she had low basal metabolism and was placed on dexadrine to reduce daytime sleepiness. She has termed it "narcolepsy" but was never officially given this diagnosis. She took it for a year and had a "very aware year". She stopped taking it because she decided it was not good to be on a stimulant for her life. She was falling asleep whenever she would sit still when she is young. She would get drowsy and fall asleep even when talking to someone. She has also tried Ritalin (1968) but it made her "climb the bernstein" and she stopped this as well. She states she seldom feels refreshed in the mornings. - Parasomnia Symptoms Ever been unable to move upon waking from sleep: No Walks in sleep: No Talks in sleep: Yes Ever acted out dreams in sleep: No Ever felt weak in the knees when startled or emotional: No Bothered by creepy, crawly, restless sensations in legs: No Problems with memory or concentration: No Subjective Initial [place] Sleepiness Scale score: 20 (05/28/23) Past Medical History Past Medical History: reports: Hypertension, Diabetes, Coronary Heart Disease, Insulin resistance, GERD, Other (BLADDER SUSPENSION AGE 40, BLADDER STONE REMOVED 3 YRS AGO) Social History The patient's occupation is a RE. Patient is and lives in [place]. Have you smoked in the past 12 months: No Cigarettes per day (20/pack): 40 Years of smokin Quit date: 1982 Smoking Pack Years: 44.0 Alcohol use: Yes Alcohol amount and frequency: YES BUT SELDOM 1/2 GLASS WINE 3 YRS AGO Caffeine use: Yes Caffeine amount and frequency: BUT SELDOM SOMETIMES BLACK TEA BUT NOT COFFEE Family History Family history of sleep disordered breathing: Yes Family Hx Sleep Apnea: Father: Snoring, Sleep apnea - Untreated, Sibling: Sleep apnea - Treated Allergies and Home Medications Known drug allergies: Yes ( LISTED ) Drug allergies reviewed: Yes Home medication list reviewed: Yes Allergy and home medication list: Allergies latex Allergy (Mild, Verified 06/03/23 14:12) irritation of skin; pruritis epinephrine [From Xylocaine with Epinephrine] Adverse Reaction (Intermediate, Verified 06/03/23 14:12) Tachycardia with local injection lidocaine [From Xylocaine with Epinephrine] Adverse Reaction (Intermediate, Verified 06/03/23 14:12) Tachycardia with local injection Sulfa (Sulfonamide Antibiotics) Adverse Reaction (Intermediate, Verified 06/03/23 14:12) Nausea nitrofurantoin [From Macrobid] Adverse Reaction (Verified 06/03/23 14:12) Emesis Home Medications Medication Instructions Recorded Confirmed Last Taken Type Simvastatin 20 mg PO DAILY 10/07/18 06/04/23 08/30/20 History Omeprazole Magnesium 20 mg PO DAILY 08/18/20 06/04/23 08/30/20 History Ascorbic Acid [Vitamin C] See Rx Instructions .[facility] 06/03/23 06/04/23 Unknown History Cholecalciferol (Vitamin D3) See Rx Instructions .[facility] 06/03/23 06/04/23 Unknown History [Vitamin D3] Cinnamon Bark Extract [Cinnamon See Rx Instructions .[facility] 06/03/23 06/04/23 Unknown History Extract] Cyanocobalamin (Vitamin B-12) See Rx Instructions .[facility] 06/03/23 06/04/23 Unknown History [Vitamin B12] Furosemide [Lasix] See Rx Instructions .[facility] 06/03/23 06/04/23 Unknown History Losartan Potassium See Rx Instructions .[facility] 06/03/23 06/04/23 Unknown History Multivitamin See Rx Instructions .[facility] 06/03/23 06/04/23 Unknown History NIFEdipine [Nifedipine ER] See Rx Instructions .[facility] 06/03/23 06/04/23 Unknown History [place]-3/Dha/Epa/Fish Oil [Fish Oil See Rx Instructions .[facility] 06/03/23 06/04/23 Unknown History 1,000 mg Softgel] Potassium Chloride See Rx Instructions .[facility] 06/03/23 06/04/23 Unknown History Ubidecarenone [Co Q-10] See Rx Instructions .[facility] 06/03/23 06/04/23 Unknown History Zinc Gluconate [Zinc] See Rx Instructions .[facility] 06/03/23 06/04/23 Unknown History glucosamine HCL [Glucosamine HCl] See Rx Instructions .[facility] 06/03/23 06/04/23 Unknown History metFORMIN [Glucophage] See Rx Instructions .[facility] 06/03/23 06/04/23 Unknown History Review of Systems Cardiovascular: reports: high blood pressure, leg or foot swelling Gastrointestinal: reports: heartburn Urinary: reports: frequency, urgency Neurological: reports: headaches Psychiatric: reports: anxiety Ear/Nose/Throat: reports: nasal congestion, tonsillectomy, wisdom teeth removed Physical Exam Vital signs obtained and entered by: PILAR Díaz MA Blood Pressure: 126/70 (LEFT ARM) Cuff size: regular Heart Rate: 59 O2 Saturation: 97 Height: 5 ft 3 in Weight: 175 lb 3.2 oz Body Mass Index: 31.0 BMI Classification: Obese Neck circumference: 17 Mouth and throat: narrow oropharynx Soft palate: long Uvula: normal Uvula visualization: 0% Mallampati Class IV Tongue: enlarged in size with teeth fletcher on lateral edges Tonsils: absent bilaterally Neck: normal w/o lymphadenopathy or thyromegaly Heart: regular rate and rhythm, murmur Lungs: clear bilaterally Impression and Plan 1. Suspected Obstructive Sleep Apnea-Hypopnea Syndrome, as suggested by a history of loud and irregular snoring, observed cessation of breath while asleep, morning headache, frequent awakening during the night, unrefreshed sleep, and excessive daytime sleepiness. Narrow oropharynx and obesity are common predisposing factors for obstructive sleep apnea-hypopnea syndrome. I recommend proceeding to polysomnography to confirm the diagnosis and to assess severity. If the patient has significant sleep disordered breathing, a manual CPAP titration study will also be performed to find the optimal treatment pressure. I informed the patient of what the sleep studies involve and after some discussion, obtained agreement to proceed. The pathophysiology of obstructive sleep apnea-hypopnea syndrome was discussed with the patient and health risks of cardiovascular and cerebrovascular disease if not treated. Risks of drowsy driving discussed in detail and patient advised to avoid long distance driving and to pulley man at the first sign of drowsiness. Patient agreed to plan. * Schedule polysomnography. * Avoid long distance driving or driving when feeling sleepy. * Avoid alcohol, sedative and muscle relaxant around bedtime. * Attempt to lose weight. * Review instructions provided by trained office staff on how to prepare for the sleep study. * Return for follow-up after sleep study completed. Counseling Topics: Weight loss health impact Visit Type: In Office Time Spent with Patient (minutes): 35 Provider Statement: I spent 100% of the Face to Face Visit with the patient with greater than 50% spent counseling the patient and coordination of care.
[2023-06-04 15:06] VITALS: BP 126/70; O2SAT 97
== END 2023-06-04 14:07 | disposition home or self-care (01) ==
LOC: SC 14:06
PROVIDERS: ATTEND Nurse Practitioner Family
DX: G47.10 Hypersomnia, unspecified (principal); R53.83 Other fatigue; G47.8 Other sleep disorders; R51.9 Headache, unspecified; R06.83 Snoring; R06.81 Apnea, not elsewhere classified; E11.9 Type 2 diabetes mellitus without complications; I10 Essential (primary) hypertension; E66.9 Obesity, unspecified; Z68.31 Body mass index [BMI] 31.0-31.9, adult; Z87.891 Personal history of nicotine dependence
CPT/HCPCS: 99203; G0463; 99212

== ENCOUNTER 2023-06-21 19:46 | Outpatient (CLI) | payer MEDICARE, OTHER | END 2023-06-21 19:47 | disposition home or self-care (01) | LOC: SC 19:46 | PROVIDERS: ATTEND Nurse Practitioner Family | DX: G47.33 Obstructive sleep apnea (adult) (pediatric) (principal); E11.9 Type 2 diabetes mellitus without complications; I10 Essential (primary) hypertension | CPT/HCPCS: 95810 ==

== ENCOUNTER 2023-07-10 10:28 | Outpatient (CLI) | payer MEDICARE, OTHER ==
--- NOTE | 2023-07-10 11:10 | SLEEP CARE CONSULTATION ---
Information from patient questionnaire entered by Pilar Cummins. I have reviewed and concur with the information entered by Pilar Cummins. This document represents the service I personally performed and the decisions made by , Zahra Rg ARNP. History of Present Illness Service Date and Time: 07/10/2023 1028 Initial [place] Sleepiness Scale score: 20 (05/28/23) Current [place] Sleepiness Scale score: 20 Additional HPI information: FLORIDA MEJIAS returns for follow up and results of the recently performed polysomnography. The sleep study showed mild obstructive sleep apnea with an average AHI of 10.9 and juan antonio oxygen saturation of 79%. I explained the pathophysiology behind obstructive sleep apnea. We then spent quite a bit of time discussing different treatment options. For mild obstructive sleep apnea, surgery and oral appliance are alternatives to nasal CPAP therapy but in moderate or severe cases, nasal CPAP is the most effective and reliable treatment. I reviewed the impact of weight changes on sleep apnea a nd strongly recommended losing weight. I explained how CPAP machine works and what to expect when using the machine. Using CPAP every night in order to get used to it was emphasized. Patient does not drink alcohol. Patient was cautioned about risks of drowsy driving until sleepiness symptoms resolve. Patient denies drowsy driving. Sleep Study - Results Type of Sleep Study: Polysomnography (COMPLETED 06/21/23) Prior sleep studies: Yes Polysomnography/Home Sleep Study results: IMPRESSION: The quality of the study is good. The patient had slightly reduced sleep efficiency due to a prolonged awakening near the end of the study. The sleep architecture was normal. Respiratory monitoring showed mild obstructive sleep apnea-hypopnea (AHI = 10.9) associated with oxyhemoglobin desaturation and moderate hypoxia (juan antonio oxygen saturation of 79%) but not sleep fragmentation. The respiratory events occurred mainly during REM (supine AHI = 10.9; non-supine = 10.89). Snore was intermittent and light in intensity. There was no significant periodic leg movement of sleep. Cardiac rhythm was normal sinus rhythm without significant arrhythmia. No abnormal behavior (parasomnia) observed during the night. Allergies and Home Medications Known drug allergies: Yes (as listed) Drug allergies reviewed: Yes Home medication list reviewed: Yes (as listed) Allergy and home medication list: Allergies latex Allergy (Mild, Verified 07/09/23 10:22) irritation of skin; pruritis epinephrine [From Xylocaine with Epinephrine] Adverse Reaction (Intermediate, Verified 07/09/23 10:22) Tachycardia with local injection lidocaine [From Xylocaine with Epinephrine] Adverse Reaction (Intermediate, Verified 07/09/23 10:22) Tachycardia with local injection Sulfa (Sulfonamide Antibiotics) Adverse Reaction (Intermediate, Verified 07/09/23 10:22) Nausea nitrofurantoin [From Macrobid] Adverse Reaction (Verified 07/09/23 10:22) Emesis Medication changes: Stopped losartin, furosemide and nifedipine; started lisinopril/HCTZ and Amlodipine Besylate Review of Systems Review of systems same as previous: Yes (no changes) Physical Exam Vital signs obtained and entered by: ZAHRA BRADENP-C Blood Pressure: 152/68 Cuff size: wrist (right) Heart Rate: 56 O2 Saturation: 98 Height: 5 ft 2 in Weight: 172 lb 12.8 oz Body Mass Index: 31.6 BMI Classification: Obese Impression and Plan 1. Obstructive Sleep Apnea-Hypopnea Syndrome, mild, with lowest oxygen saturation of 79%. Obviously this is the cause of the patients symptoms of unrefreshed sleep, and excessive daytime sleepiness. Positive pressure therapy could benefit hypertension, diabetes, gastric reflux, cardiac disease (CHD) and insulin resistance. I strongly advised trying a CPAP for her sleep apnea because of her heart history. She is concerned about having narcolepsy since she was 14 years old. She has not tolerated stimulants in the past for her daytime sleepiness. I discussed with her that a PSG followed by a MSLT is the test for narcolepsy but I would like to trial her on CPAP to see if it helps her symptoms before we put her through this test. She voiced understanding. She would like to take a few days to think about her options and will call with her decision on starting therapy. She may elevate her head to reduce apnea while sleeping on pillows. 2. Hypoxemia, moderate, with a juan antonio oxygen saturation of 79% and 10 minutes spent under 90%. The baseline oxygen saturation was normal with an average oxygen saturation of 92%. 3. Obesity, unspecified. Currently patients BMI is 31.6. Obesity increases the risk of apnea, CPAP pressure requirements and overall health risks especially cardiovascular and diabetes. Thus patient is advised to lose weight. * Patient to call with choice of therapy, followup is dependant on choice. * Attempt to lose weight. * The patient is again cautioned about driving until sleepiness completely resolves. Counseling Topics: Weight loss health impact Follow up with Sleep Care in: other (pt to call with choice of therapy) Visit Type: In Office Time Spent with Patient (minutes): 23 Provider Statement: I spent 100% of the Face to Face Visit with the patient with greater than 50% spent counseling the patient and coordination of care.
[2023-07-10 11:18] VITALS: BP 152/68; O2SAT 98
== END 2023-07-10 10:29 | disposition home or self-care (01) ==
LOC: SC 10:28
PROVIDERS: ATTEND Nurse Practitioner Family
DX: G47.33 Obstructive sleep apnea (adult) (pediatric) (principal); I10 Essential (primary) hypertension; R09.02 Hypoxemia; E66.9 Obesity, unspecified; Z68.31 Body mass index [BMI] 31.0-31.9, adult
CPT/HCPCS: 36415; 80048; 99213; G0463; 99212

== ENCOUNTER 2023-07-10 11:08 | Outpatient (CLI) | payer MEDICARE, OTHER ==
[2023-07-10 19:08] LABS: CALCIUM 10.5 mg/dL (8.5-10.3); CREATININE 0.9 mg/dL (0.6-1.3); POTASSIUM 4.5 mmol/L (3.5-4.5)
== END 2023-07-10 11:09 | disposition home or self-care (01) ==
LOC: LAB.N 11:08
PROVIDERS: ATTEND Internal Medicine Cardiovascular Disease
DX: I10 Essential (primary) hypertension (principal)
CPT/HCPCS: 36415; 80048

== ENCOUNTER 2023-07-21 13:38 | Outpatient (CLI) | payer MEDICARE, OTHER ==
--- NOTE | 2023-07-21 18:13 | DEXA Report ---
PROCEDURE: Dexa Spine and/or Hip INDICATIONS: POST MENOPAUSAL TECHNIQUE: Dual energy x-ray absorptiometry (DXA) was performed on a [employer] System. Regions measur ed are the AP Spine, femoral neck, and if needed forearm. COMPARISON: 07/20/2021 FINDINGS: Lumbar Spine: Bone Mineral Density 1.244 g/cm/cm,T score 0.5. Since the most recent prior study, there has been a statistically significant increase in bone mineral density by 2.6 percent. Left Femoral Neck: Bone Mineral Density 0.905 g/cm/cm, T score -1.0. Left Hip: Bone Mineral Density 0.941 g/cm/cm,T score -0.5. Unchanged (T score greater or equal to -1.0: NORMAL) (T score from -1.1 to -2.4: OSTEOPENIA) (T score less than or equal to -2.5 to: OSTEOPOROSIS) Impression: By WHO criteria, this patient has normal bone density. Interval statistical increase in bone minteral density of the lumbar spine. No statistical interval c hange in bone minteral density of the hip. Patients with diagnosis of osteoporosis or osteopenia should have regular bone mineral density assess ment. For those eligible for Medicare, routine testing is allowed once every 2 years. Testing frequ ency can be increased for patients who have rapidly progressing disease or for those who are receivin g medical therapy to restore bone mass. Reviewed by: Duncan Gonsalez MD on 07/21/2023 6:11 PM PST Approved by: Duncan Gonsalez MD on 07/21/2023 6:11 PM PST Station ID: [id number]
== END 2023-07-21 13:39 | disposition home or self-care (01) ==
LOC: DI 13:38
PROVIDERS: ATTEND Nurse Practitioner Family
DX: Z78.0 Asymptomatic menopausal state (principal)

== ENCOUNTER 2023-10-22 13:23 | Outpatient (CLI) | payer MEDICARE, OTHER ==
--- NOTE | 2023-10-23 09:26 | Mammography Report ---
BILATERAL DIGITAL SCREENING MAMMOGRAM 3D/2D: 10/22/2023 CLINICAL: Routine screening. Family history of breast cancer. Comparison is made to exams dated: 10/25/2022 mammogram, 06/14/2021 mammogram, 04/06/2020 mammogram, mammogram, 11/11/2017 mammogram - [facility], and 10/28/2016 mammogram - [facility]. There are scattered areas of fibroglandular density in both breasts (category b / 25%-50% glandular t issue). There are benign calcifications in the right breast. There also are benign vascular calcifications i n both breasts. No significant masses, calcifications, or other findings are seen in either breast. There has been no significant interval change. IMPRESSION: BENIGN There is no mammographic evidence of malignancy. A 1 year screening mammogram is recommended. Based on the Tyrer Cuzick model (a risk assessment model) the patient's lifetime risk is 3.7% and her 10 year risk is 0.0%. According to the ACR, ACS, and NCCN guidelines, an annual breast MRI exam suly g with mammogram is recommended if the patient's lifetime risk is 20% or greater. This exam was interpreted at Station ID: [id number]. NOTE: For mammograms, a report in lay terms will be sent to the patient. Approximately 15% of breast malignancies will not be visualized mammographically. In the management of a palpable breast mass, a negative mammogram must not discourage biopsy of a clinically suspicious lesion. Electronically Signed By: Agnieszka scales/tahir:10/22/2023 17:08:40 letter sent: No_Letter ACR BI-RADS Category 2: Benign Finding(s) 3342F PARENCHYMAL PATTERN: (A) - The breast(s) demonstrate(s) scattered fibroglandular densities. BI-RADS CATEGORY: (2) - 2 Mammogram [id number] 1 year screening LATERALITY: (B)
== END 2023-10-22 13:24 | disposition home or self-care (01) ==
LOC: DI.N 13:23
DX: Z12.31 Encounter for screening mammogram for malignant neoplasm of breast (principal); R92.323 Mammographic fibroglandular density, bilateral breasts; Z85.3 Personal history of malignant neoplasm of breast; R92.1 Mammographic calcification found on diagnostic imaging of breast

== ENCOUNTER 2023-10-22 13:47 | Outpatient (CLI) | payer MEDICARE, OTHER ==
[2023-10-22 17:44] LABS: BASOPHILS # (AUTO) 0.1 10^3/uL (0.0-0.1); BASOPHILS % (AUTO) 0.9 %; EOSINOPHILS # (AUTO) 0.2 10^3/uL (0.0-0.7); EOSINOPHILS % (AUTO) 2.5 %; HCT - HEMATOCRIT 40.7 % (37.0-47.0); HGB - HEMOGLOBIN 13.1 g/dL (12.0-16.0); LYMPHOCYTES # (AUTO) 2.2 10^3/uL (1.5-3.5); LYMPHOCYTES % (AUTO) 32.6 %; MEAN CORPUSCULAR HEMOGLOBIN 30.5 pg (27.0-31.0); MEAN CORPUSCULAR HGB CONC 32.2 g/dL (32.0-36.0); MEAN CORPUSCULAR VOLUME 94.7 fL (81.0-99.0); MEAN PLATELET VOLUME 9.2 fL (7.9-10.8); MONOCYTES # (AUTO) 0.7 10^3/uL (0.0-1.0); MONOCYTES % (AUTO) 9.7 %; NEUTROPHILS # (AUTO) 3.7 10^3/uL (1.5-6.6); PLT - PLATELET COUNT 331 10^3/uL (130-450); RED CELL DISTRIBUTION WIDTH 13.2 % (12.0-15.0); WHITE BLOOD COUNT 6.8 x10^3/uL (4.8-10.8)
[2023-10-22 18:30] LABS: THYROID STIMULATING HORMONE 2.41 uIU/mL (0.34-5.60)
[2023-10-22 18:34] LABS: ALBUMIN 4.7 g/dL (3.2-5.5); ALBUMIN/GLOBULIN RATIO 1.6 (1.0-2.2); ALKALINE PHOSPHATASE 64 IU/L (42-121); ALT ALANINE AMINOTRANSFERASE 36 IU/L (10-60); AST ASPARTATE AMINOTRANSFERASE 21 IU/L (10-42); BILIRUBIN,TOTAL 0.4 mg/dL (0.2-1.0); BUN - BLOOD UREA NITROGEN 37 mg/dL (6-20); CALCIUM 10.7 mg/dL (8.5-10.3); CARBON DIOXIDE - CO2 25 mmol/L (21-32); CHLORIDE 104 mmol/L (101-111); CHOL/HDL RATIO 2.6 (<4.4); CHOLESTEROL 184 mg/dL; GFR - MDRD 53 (>89); GLUCOSE 129 mg/dL (74-104); HDL CHOLESTEROL 72 mg/dL; LDL CHOLESTEROL,CALCULATED 85 mg/dL; LDL/HDL RATIO 1.2 (<4.4); POTASSIUM 4.2 mmol/L (3.5-4.5); SODIUM 138 mmol/L (135-145); TOTAL PROTEIN 7.6 g/dL (6.4-8.9); TRIGLYCERIDES 134 mg/dL (48-352); VLDL CHOLESTEROL 27 mg/dL
[2023-10-22 20:34] LABS: ESTIMATED AVERAGE GLUCOSE 146 mg/dL (70-100); HEMOGLOBIN A1c% 6.7 % (4.27-6.07)
== END 2023-10-22 13:48 | disposition home or self-care (01) ==
LOC: LAB.N 13:47
PROVIDERS: ATTEND Nurse Practitioner Family
DX: I10 Essential (primary) hypertension (principal); E78.5 Hyperlipidemia, unspecified; E11.9 Type 2 diabetes mellitus without complications; E66.9 Obesity, unspecified
CPT/HCPCS: 36415; 80053; 80061; 83036; 83721; 84443; 85025

== ENCOUNTER 2023-12-18 14:49 | Outpatient (CLI) | payer MEDICARE, OTHER ==
[2023-12-18 15:22] LABS: CALCIUM 10.2 mg/dL (8.5-10.3); CREATININE 1.1 mg/dL (0.6-1.3); POTASSIUM 4.2 mmol/L (3.5-4.5)
== END 2023-12-18 14:50 | disposition home or self-care (01) ==
LOC: LAB 14:49
PROVIDERS: ATTEND Internal Medicine Cardiovascular Disease
DX: I10 Essential (primary) hypertension (principal)
CPT/HCPCS: 36415; 80048